=== PATIENT | female | born 1970 | race Hispanic/Latino ===

== ENCOUNTER 2019-09-15 12:11 | Inpatient (IN) | payer OTHER, SELFPAY ==
[~2019-09-15] VITALS: Ht 157.5 cm; Wt 64.9 kg
[2019-09-15] MEDS: SODIUM CHLORIDE 0.9% 1000ML 1,000 ML IV SCH (03:40)
[2019-09-15 13:20] LABS: BASOPHILS % (AUTO) 0.1 % (0.0-5.0); LYMPHOCYTES % (AUTO) 12.2 % (21.0-51.0); MEAN CORPUSCULAR HEMOGLOBIN 26.8 pg (27.0-33.0); MEAN CORPUSCULAR HGB CONC 32.6 g/dL (32.0-36.0); MEAN CORPUSCULAR VOLUME 82.3 fL (79-99); MONOCYTES % (AUTO) 4.2 % (3.0-13.0); NEUTROPHILS % (AUTO) 82.8 % (40.0-77.0); PLATELET COUNT (AUTO) 277 K/uL (130-400); RED BLOOD CELL COUNT(AUTO) 4.62 MIL/uL (4.00-5.50); RED CELL DISTRIBUTION WIDTH 12.8 % (11.0-15.5); WHITE BLOOD COUNT (AUTO) 9.2 K/uL (4.8-10.8)
[2019-09-15] MEDS ORDERED: KETOROLAC TROMETHAMINE 30MG/ML ONE (13:30)
[2019-09-15] MEDS ORDERED: SODIUM CHLORIDE 0.9% 1000ML 1,000 ML IV ONE ×2 (13:31→21:28)
[2019-09-15 13:33] LABS: CREATININE 0.8 mg/dL (0.5-1.5); POTASSIUM 3.8 mmol/L (3.5-5.1)
[2019-09-15 13:34] LABS: APPEARANCE,URINE Clear (CLEAR); BILIRUBIN,URINE Negative (NEGATIVE); COLOR,URINE Yellow (YELLOW); GLUCOSE, URINE (UA) Negative (NEGATIVE); KETONES,URINE Negative (NEGATIVE); LEUKOCYTE ESTERASE ,URINE Negative (NEGATIVE); NITRATE,URINE Negative (NEGATIVE); OCCULT BLOOD,URINE Negative (NEGATIVE); PROTEIN,URINE Negative (NEGATIVE)
[2019-09-15 13:38] LABS: ALBUMIN 3.2 g/dL (3.5-5.0); BILIRUBIN,TOTAL 0.3 mg/dL (0.2-1.0)
[2019-09-15 13:48] LABS: HCG,QUAL RESULT NEGATIVE (NEGATIVE)
[2019-09-15] MEDS ORDERED: IOHEXOL-350 75 ML VIAL IV ONE (14:03)
[2019-09-15] MEDS ORDERED: ZOSYN 3.375GM+NS 50ML 50 ML IV ONE ×2 (15:23→21:26)
[2019-09-15] MEDS ORDERED: HYDRALAZINE HCL 20 MG/ML VIAL IV PRN (18:15)
[2019-09-15] MEDS ORDERED: ONDANSETRON HCL 4 MG/2 ML VIAL IV PRN (18:15)
[2019-09-15 20:06] LABS: BASOPHILS % (AUTO) 0.1 % (0.0-5.0); HEMATOCRIT 36.2 % (36-48); LYMPHOCYTES % (AUTO) 15.5 % (21.0-51.0); MEAN CORPUSCULAR HEMOGLOBIN 27.3 pg (27.0-33.0); MEAN CORPUSCULAR HGB CONC 32.9 g/dL (32.0-36.0); MONOCYTES % (AUTO) 4.5 % (3.0-13.0); NEUTROPHILS % (AUTO) 79.4 % (40.0-77.0); PLATELET COUNT (AUTO) 238 K/uL (130-400); RED BLOOD CELL COUNT(AUTO) 4.36 MIL/uL (4.00-5.50); RED CELL DISTRIBUTION WIDTH 12.5 % (11.0-15.5); WHITE BLOOD COUNT (AUTO) 8.3 K/uL (4.8-10.8)
[2019-09-15 20:25] LABS: ALANINE AMINOTRANSFERASE 36 U/L (12-78); ALBUMIN 2.9 g/dL (3.5-5.0); ASPARTATE AMINOTRANSFERASE 21 U/L (10-37); BILIRUBIN,TOTAL 0.4 mg/dL (0.2-1.0); CARBON DIOXIDE 26 mmol/L (21-32); CHLORIDE 105 mmol/L (101-111); CREATININE 0.7 mg/dL (0.5-1.5); GLOMERULAR FILTR. RATE CALC 95 mL/min (>60); GLUCOSE,RANDOM 87 mg/dL (70-105); POTASSIUM 3.9 mmol/L (3.5-5.1); SODIUM SERUM 137 mmol/L (136-145); TOTAL PROTEIN, SERUM 7.3 g/dL (6.0-8.3); UREA NITROGEN, BLOOD 12 mg/dL (7-18)
[2019-09-15] MEDS: FAMOTIDINE/PF 20 MG/2 ML VIAL IV SCH (21:00)
[2019-09-15] MEDS ORDERED: FAMOTIDINE/PF 20 MG/2 ML VIAL IV ONE (21:27)
[2019-09-16] VITALS (27 sets, daily range): BP systolic 93–120; BP diastolic 42–76
[2019-09-16] MEDS ORDERED: HYDROMORPHONE HCL 0.5 MG/0.5 ML ML ONE (00:03)
[2019-09-16] MEDS: ZOSYN 3.375GM+NS 50ML 50 ML IV SCH ×4 (05:00→20:11)
[2019-09-16] MEDS: HYDROMORPHONE 1 MG/1 ML AMP IVP PRN ×2 (05:55→20:19)
[2019-09-16] MEDS ORDERED: LEVO88TA63 PO (06:16)
[2019-09-16] MEDS ORDERED: LEVAHFA IH (06:16)
[2019-09-16] MEDS ORDERED: FENO145T26 PO (06:16)
[2019-09-16] MEDS: FAMOTIDINE/PF 20 MG/2 ML VIAL IV SCH ×2 (09:19→20:11)
--- NOTE | 2019-09-16 12:05 | NUR ---
CHART CHECK COMPLETED. Pt IS A 49 Y.O. FEMALE ADMITTED SECONDARY TO PERFORATED APPENDICITIS. Pt HAS A PAST MEDICAL HISTORY SIGNIFICANT FOR ASTHMA,HYPOTHYROIDISM, HYPERTRIGLYCERIDEMIA, AND X3. Pt CURRENTLY NPO SECONDARY TO ADMITTING DIAGNOSIS. PLEASE REQUEST FORMAL SKILLED SPEECH/SWALLOW EVALUATION IF Pt PRESENTS WITH +S/S OF ASPIRATION SUCH COUGH RESPONSE, THROAT CLEAR, OR WET VOCAL QUALITY DURING P.O. Addendum: 09/16/19 at 1208 by DARRICK KEE, [facility] Amended: Links added.
--- NOTE | 2019-09-16 13:09 | NUR ---
[facility] CM spoke to pt discussed dc plans. Pt is independent prior to admission, lives at home alone, family lives close by. Denies any equipments/services. Feels safe to go back home, still drives, sister able to assist with transportation and needs as necessary. DC plan to home once stable. Pt is selfpay, [facility] assisting, given community Explored[employer] packet. CM to cont to follow up. Addendum: 09/16/19 at 1311 by ARIANNA BOLDEN LVN CM Amended: Links added.
[2019-09-16] MEDS: SODIUM CHLORIDE 0.9% 1000ML 1,000 ML IV SCH ×3 (14:00→22:52)
[2019-09-16] MEDS ORDERED: BUPIVACAINE/PF 0.5% 30ML VIAL ONE (14:02)
--- NOTE | 2019-09-16 14:12 | NUR ---
pt taken to surgery by bed in good condition with IVF patent; scheduled Zosyn IV also taken by OR staff (Opal)
[2019-09-16] MEDS ORDERED: LIDOCAINE PF 2% 5ML ABBOJECT ONE (14:29)
[2019-09-16] MEDS ORDERED: MIDAZOLAM HCL 1 MG/ML 2ML VIAL ONE (14:29)
[2019-09-16] MEDS ORDERED: SUCCINYLCHOLINE CHLORIDE 20 MG/ML 10 ML VIAL ONE (14:29)
[2019-09-16] MEDS ORDERED: ROCURONIUM 10MG/1ML SYR 10 MG/ML ML ONE (14:30)
[2019-09-16] MEDS ORDERED: PROPOFOL 10 MG/ML 20ML VIAL IV ONE (14:30)
[2019-09-16] MEDS ORDERED: ONDANSETRON HCL 4 MG/2 ML VIAL ONE (14:30)
[2019-09-16] MEDS ORDERED: FENTANYL CITRATE PF 50 MCG/1 ML 2ML VIAL ONE (14:31)
[2019-09-16] MEDS ORDERED: GLYCOPYRROLATE 1 MG/5 ML SYRINGE ONE (15:18)
[2019-09-16] MEDS ORDERED: KETOROLAC TROMETHAMINE 30MG/ML ONE (15:19)
[2019-09-16] MEDS ORDERED: NEOSTIGMINE 5MG/5ML SYR IV ONE (15:19)
[2019-09-16] MEDS ORDERED: MEPERIDINE-PF 25 MG/ML SYG ONE ×2 (15:31→16:04)
--- NOTE | 2019-09-16 16:47 | NUR ---
pt returned to room 327 by bed in good condition with IV site C/D/I, SCD's in place, RIC drain charged. Drsg C/D/I to lower abdomen. HOB elevated approx. 25 degrees. No current c/o or s/s of pain or resp. difficulty at this time.
[2019-09-17] VITALS (7 sets, daily range): BP systolic 104–118; BP diastolic 54–75
[2019-09-17] MEDS: HYDROMORPHONE 4MG/ML 1ML VIAL IVP PRN (01:16)
[2019-09-17] MEDS: ZOSYN 3.375GM+NS 50ML 50 ML IV SCH ×3 (04:24→20:52)
[2019-09-17] MEDS: HYDROMORPHONE 1 MG/1 ML AMP IVP PRN ×4 (05:04→23:06)
[2019-09-17 06:54] LABS: BASOPHILS % (AUTO) 0.4 % (0.0-5.0); EOSINOPHILS % (AUTO) 0.1 % (0.0-8.0); MEAN CORPUSCULAR VOLUME 84.3 fL (79-99); NEUTROPHILS % (AUTO) 87.6 % (40.0-77.0); PLATELET COUNT (AUTO) 255 K/uL (130-400); RED BLOOD CELL COUNT(AUTO) 4.15 MIL/uL (4.00-5.50); RED CELL DISTRIBUTION WIDTH 12.7 % (11.0-15.5)
[2019-09-17 07:06] LABS: CREATININE 0.8 mg/dL (0.5-1.5); POTASSIUM 3.7 mmol/L (3.5-5.1)
[2019-09-17 08:07] LABS: ERYTHROCYTE SEDIMENTATION RATE 62 MM/HR (0-20)
[2019-09-17] MEDS: FAMOTIDINE/PF 20 MG/2 ML VIAL IV SCH ×2 (09:23→20:52)
[2019-09-17] MEDS: SODIUM CHLORIDE 0.9% 1000ML 1,000 ML IV SCH ×2 (09:33→20:11)
--- NOTE | 2019-09-17 12:39 | NUR ---
pt up ambulating in the pierre with minimal assist of 1. steady gait. No s/s of resp difficulty. C/O abdominal pain, meds given as ordered.
[2019-09-18 04:27] VITALS: BP 107/55
[2019-09-18] MEDS: ZOSYN 3.375GM+NS 50ML 50 ML IV SCH ×3 (04:30→20:07)
[2019-09-18] MEDS: SODIUM CHLORIDE 0.9% 1000ML 1,000 ML IV SCH ×2 (06:23→17:08)
[2019-09-18] MEDS: HYDROMORPHONE 1 MG/1 ML AMP IVP PRN (06:24)
[2019-09-18 06:42] LABS: EOSINOPHILS % (AUTO) 0.1 % (0.0-8.0); HEMATOCRIT 32.5 % (36-48); MEAN CORPUSCULAR HEMOGLOBIN 27.4 pg (27.0-33.0); MEAN CORPUSCULAR HGB CONC 33.2 g/dL (32.0-36.0); MEAN CORPUSCULAR VOLUME 82.5 fL (79-99); MONOCYTES % (AUTO) 2.4 % (3.0-13.0); NEUTROPHILS % (AUTO) 85.6 % (40.0-77.0); PLATELET COUNT (AUTO) 257 K/uL (130-400); RED BLOOD CELL COUNT(AUTO) 3.94 MIL/uL (4.00-5.50); RED CELL DISTRIBUTION WIDTH 12.5 % (11.0-15.5); WHITE BLOOD COUNT (AUTO) 10.4 K/uL (4.8-10.8)
[2019-09-18 06:47] LABS: CREATININE 0.6 mg/dL (0.5-1.5); POTASSIUM 3.4 mmol/L (3.5-5.1)
[2019-09-18 07:30] VITALS: BP 110/70
[2019-09-18] MEDS: FAMOTIDINE/PF 20 MG/2 ML VIAL IV SCH ×2 (08:36→20:07)
[2019-09-18] MEDS ORDERED: LEVALBUTEROL TARTRATE IH SCH (09:00)
[2019-09-18] MEDS ORDERED: POTASSIUM CHLORIDE 20 MEQ ERTAB PO SCH (09:00)
[2019-09-18] MEDS ORDERED: ACETAMINOPHEN EXTRA STRENGTH 500 MG TABLET PO PRN (09:45)
[2019-09-18] MEDS: HYDROCODONE/ACETAMINOPHEN 10/325 MG TAB PO PRN ×2 (10:00→20:16)
[2019-09-18 11:00] VITALS: BP 120/60
[2019-09-18 16:00] VITALS: BP 140/108
[2019-09-18] MEDS ORDERED: HYDROMORPHONE HCL 0.5 MG/0.5 ML ML ONE (16:51)
[2019-09-18 19:44] VITALS: BP 128/67
[2019-09-18 23:56] VITALS: BP 108/66
[2019-09-19] MEDS: HYDROCODONE/ACETAMINOPHEN 10/325 MG TAB PO PRN ×3 (01:30→13:54)
[2019-09-19 04:00] VITALS: BP 102/60
[2019-09-19] MEDS: ZOSYN 3.375GM+NS 50ML 50 ML IV SCH (05:47)
[2019-09-19] MEDS ORDERED: LEVOTHYROXINE 88 MCG TABLET PO SCH (06:30)
[2019-09-19] MEDS ORDERED: HYDROMORPHONE HCL 0.5 MG/0.5 ML ML ONE (06:42)
[2019-09-19] MEDS: HYDROMORPHONE 4MG/ML 1ML VIAL IVP PRN (06:43)
[2019-09-19 07:09] LABS: HEMATOCRIT 32.2 % (36-48); MEAN CORPUSCULAR HEMOGLOBIN 26.7 pg (27.0-33.0); MEAN CORPUSCULAR HGB CONC 32.3 g/dL (32.0-36.0); MEAN CORPUSCULAR VOLUME 82.6 fL (79-99); RED BLOOD CELL COUNT(AUTO) 3.9 MIL/uL (4.00-5.50); RED CELL DISTRIBUTION WIDTH 12.7 % (11.0-15.5); WHITE BLOOD COUNT (AUTO) 8.6 K/uL (4.8-10.8)
[2019-09-19 07:23] LABS: CREATININE 0.5 mg/dL (0.5-1.5); POTASSIUM 3.6 mmol/L (3.5-5.1)
[2019-09-19 07:40] VITALS: BP 119/78
[2019-09-19] MEDS: FAMOTIDINE/PF 20 MG/2 ML VIAL IV SCH (08:21)
[2019-09-19] MEDS: SODIUM CHLORIDE 0.9% 1000ML 1,000 ML IV SCH (08:22)
[2019-09-19 10:56] VITALS: BP 114/76
[2019-09-19] MEDS ORDERED: AMOX-426 PO (13:53)
== END 2019-09-19 17:01 | disposition home or self-care (01) | DRG 340 ==
LOC: EDH 12:11 → EDHIP 12:12 → 3DH 09-16 02:50
PROVIDERS: ADMIT Internal Medicine; ATTEND Internal Medicine
PROC: 0DTJ4ZZ Resection of Appendix, Percutaneous Endoscopic Approach (ICD-10-PCS; principal; 2019-09-16 14:45)
DX: K35.33 Acute appendicitis with perforation, localized peritonitis, and gangrene, with abscess (principal); E03.9 Hypothyroidism, unspecified; E78.1 Pure hyperglyceridemia; E87.6 Hypokalemia; B96.1 Klebsiella pneumoniae [K. pneumoniae] as the cause of diseases classified elsewhere; B96.4 Proteus (mirabilis) (morganii) as the cause of diseases classified elsewhere; I10 Essential (primary) hypertension; E78.5 Hyperlipidemia, unspecified; J45.909 Unspecified asthma, uncomplicated; Z20.828 Contact with and (suspected) exposure to other viral communicable diseases; Z98.891 History of uterine scar from previous surgery
CPT/HCPCS: 36415; 74177; 80048; 80053; 81003; 81025; 84145; 85025; 85027; 85378; 85651; 86140; 87040; 87070; 87076; 87077; 87186; 87426; 88304; A4344; G0378; J0330; J1170; J1885; J2001; J2175; J2250; J2405; J2543; J2704; J2710; J3010; J3490; J7030; J7120; Q9967

== ENCOUNTER 2021-08-29 07:56 | Day surgery (SDC) | payer BC, OTHER, SELFPAY ==
[~2021-08-29] VITALS: Ht 157.5 cm; Wt 68.0 kg
[2021-08-29] VITALS (16 sets, daily range): BP systolic 98–116; BP diastolic 52–62
[~2021-08-29 07:56] MED LIST: AMOX-426 PO; FENO145T26 PO; LEVAHFA IH; LEVO88TA63 PO
[2021-08-29 08:19] LABS: HEMATOCRIT 44.4 % (36-48); LYMPHOCYTES % (AUTO) 38.6 % (21.0-51.0); MEAN CORPUSCULAR HEMOGLOBIN 27.3 pg (27.0-33.0); MEAN CORPUSCULAR HGB CONC 33.1 g/dL (32.0-36.0); MEAN CORPUSCULAR VOLUME 82.5 fL (79-99); MONOCYTES % (AUTO) 5.4 % (3.0-13.0); NEUTROPHILS % (AUTO) 55.4 % (40.0-77.0); PLATELET COUNT (AUTO) 254 K/uL (130-400); RED BLOOD CELL COUNT(AUTO) 5.38 MIL/uL (4.00-5.50); RED CELL DISTRIBUTION WIDTH 12.3 % (11.0-15.5); WHITE BLOOD COUNT (AUTO) 4.6 K/uL (4.8-10.8)
[2021-08-29 08:32] LABS: ALBUMIN 4.1 g/dL (3.5-5.0); CREATININE 0.8 mg/dL (0.5-1.5); POTASSIUM 3.9 mmol/L (3.5-5.1); TOTAL PROTEIN, SERUM 7.9 g/dL (6.0-8.3)
[2021-08-29 08:55] LABS: APPEARANCE,URINE Clear (CLEAR); BILIRUBIN,URINE Negative (NEGATIVE); COLOR,URINE Yellow (YELLOW); GLUCOSE, URINE (UA) Negative (NEGATIVE); KETONES,URINE Negative (NEGATIVE); LEUKOCYTE ESTERASE ,URINE Negative (NEGATIVE); NITRATE,URINE Negative (NEGATIVE); OCCULT BLOOD,URINE Negative (NEGATIVE); PH,URINE 5.5 (5.0-8.0); PROTEIN,URINE Negative (NEGATIVE); UROBILINOGEN,URINE 0.2 mg/dL (0.2-1.0)
[2021-08-29] MEDS ORDERED: LOSA50TA64 PO (11:26)
[2021-08-29] MEDS ORDERED: LEVO75CA5 PO (11:26)
[2021-08-29] MEDS ORDERED: LACTATED RINGERS 1000ML 1,000 ML IV ONE (11:29)
[2021-08-29] MEDS ORDERED: FAMOTIDINE 20MG VIAL IV ONE (11:33)
[2021-08-29] MEDS ORDERED: HYDROMORPHONE 1 MG INJ ONE (11:34)
[2021-08-29] MEDS ORDERED: BUPIVACAINE/PF 0.5% 30ML VIAL ONE (11:40)
[2021-08-29] MEDS ORDERED: MIDAZOLAM HCL 1 MG/ML 2ML VIAL ONE (11:51)
[2021-08-29] MEDS ORDERED: FENTANYL CITRATE PF 50 MCG/1 ML 2ML VIAL ONE (11:51)
[2021-08-29] MEDS ORDERED: ROCURONIUM 10MG/1ML SYR 10 MG/ML ML ONE (11:52)
[2021-08-29] MEDS ORDERED: GLYCOPYRROLATE 1 MG/5 ML SYRINGE ONE (11:52)
[2021-08-29] MEDS ORDERED: CEFAZOLIN SODIUM 2 GM VIAL IV ONE (12:24)
[2021-08-29] MEDS ORDERED: CEFAZOLIN SODIUM 1 GM VIAL ONE (12:25)
[2021-08-29] MEDS ORDERED: ONDANSETRON 4MG INJ ONE (12:37)
[2021-08-29] MEDS ORDERED: NEOSTIGMINE 5MG/5ML SYR IV ONE (12:39)
[2021-08-29] MEDS ORDERED: BUPIVACAINE/PF 0.5% 30ML VIAL INJ ONE (12:50)
[2021-08-29] MEDS ORDERED: MEPERIDINE-PF 25 MG/ML SYG ONE (13:21)
[2021-08-29] MEDS ORDERED: IPRATROPIUM/ALBUTEROL SULFATE 3 ML SOLUTION IH ONE (13:26)
== END 2021-08-29 15:15 | disposition home or self-care (01) ==
LOC: EDH 07:56 → DAH 07:57 → EDH 11:14 → DAH 13:23
PROVIDERS: ATTEND Surgery
DX: K43.0 Incisional hernia with obstruction, without gangrene (principal); J45.909 Unspecified asthma, uncomplicated; I10 Essential (primary) hypertension; E78.5 Hyperlipidemia, unspecified; Z90.49 Acquired absence of other specified parts of digestive tract; Z98.891 History of uterine scar from previous surgery
CPT/HCPCS: 49561; 80053; 84703; 85025; 86850; 86900; 86901; 81003; 36415; 87635; 71045; 99281; 93005; 94640; A4452; C9803; J0690 ×2; J7120; J3490 ×4; J3010; J1170; J2710; J2250; J2405; J2175; A4930; A4223; A4222; A4663; A4216; A4600

== ENCOUNTER 2024-11-22 08:46 | Inpatient (IN) | payer BC ==
[~2024-11-22] VITALS: Ht 157.5 cm; Wt 67.6 kg
[~2024-11-22 08:46] MED LIST changes: -AMOX-426 PO; -FENO145T26 PO; -LEVAHFA IH; +LEVO75CA6 PO; -LEVO88TA63 PO; +LOSA50TA64 PO
[2024-11-22 09:09] LABS: IMMATURE GRANULOCYTE ABSOLUTE 0.01 K/uL (0-1); NUCLEATED RED BLOOD CELLS 0.0 % (0.0-0.19); PLATELET COUNT (AUTO) 188 K/uL (130-400); RED BLOOD CELL COUNT(AUTO) 5.60 MIL/uL (4.00-5.50); RED CELL DISTRIBUTION WIDTH 13.9 % (11.0-15.5); WHITE BLOOD COUNT (AUTO) 4.3 K/uL (4.8-10.8)
[2024-11-22 09:11] LABS: APPEARANCE,URINE CLEAR (CLEAR); GLUCOSE, URINE (UA) NEGATIVE (NEGATIVE); LEUKOCYTE ESTERASE ,URINE NEGATIVE Leu/uL (NEGATIVE); NITRATE,URINE NEGATIVE (NEGATIVE); OCCULT BLOOD,URINE NEGATIVE (NEGATIVE)
[2024-11-22 09:22] LABS: ADD UA MICROSCOPIC YES
[2024-11-22 09:23] LABS: CREATININE 0.6 mg/dL (0.5-1.0); GLOMERULAR FILTR. RATE CALC 107.0 mL/min (>90); GLUCOSE,RANDOM 150.0 mg/dL (70-105); SODIUM SERUM 141.0 mmol/L (136-145); UREA NITROGEN, BLOOD 10.0 mg/dL (7-18)
[2024-11-22 09:24] LABS: SQUAMOUS EPITHELIAL CELL,UR RARE /HPF (0-2)
[2024-11-22 09:32] LABS: ASPARTATE AMINOTRANSFERASE 402.0 U/L (10-37); TOTAL PROTEIN, SERUM 8.1 g/dL (6.0-8.3)
--- NOTE | 2024-11-22 09:47 | ERN ---
General Chief Complaint: Abdominal Pain Stated Complaint: ABDOMINAL PAIN Time Seen by MD: 08:48 Source: patient History of Present Illness Initial Comments 54-year-old female history of hyperlipidemia and diabetes mellitus who presents to emergency room with a right upper quadrant pain that radiates to the back sign yesterday after she had a plate of lemon pepper wings and Coca-Cola. This is a 1st time she had wings that were greasy in a long time and has not had similar symptoms before in the past. Has had associated nausea and vomiting but no diarrhea. No fever no cough no shortness a breath no chest pain. Allergies: Coded Allergies: No Known Allergies (Verified Allergy, Unknown, 09/15/19) Home Meds Reported Medications Losartan Potassium (Losartan Potassium) 50 Mg Tablet, 50 MG PO HS, TAB 08/29/21 Levothyroxine Sodium (Levothyroxine) 75 Mcg Capsule, 70 MCG PO DAILY, CAP 08/29/21 Past Medical History Past Medical History: Hypertension, Hypothyroid Past Surgical History: Appendectomy, Other Surgical History Other: hernia repair Female( History) : 3 Para: 3 Aborts: 0 Gastrointestinal/Abdominal: (+) nausea, (+) vomiting, (+) abdominal pain Review of Systems: was completed, & the rest were negative. Physical Exam General Appearance: (+) no apparent distress Orientation: (+) alert, (+) oriented x 3 Ear, Nose, Throat: (+) hearing grossly normal Neck: (+) normal inspection Respiratory: (+) chest non-tender Heart: (+) regular Vascular: (+) no edema Gastrointestinal: (+) soft, (+) tender, (+) yang's sign Back: (+) normal inspection, (+) no CVA tenderness, (+) no vertebral tenderness Extremities: (+) normal range of motion Results Laboratory and Microbiology Lab and Micro Result Laboratory Tests Test 11/22/24 09:00 11/22/24 09:02 Triglycerides Level 81 mg/dL (30-200) White Blood Count 4.3 K/uL (4.8-10.8) L Red Blood Count 5.60 MIL/uL (4.00-5.50) H Hemoglobin 15.4 g/dL (12.0-16.0) Hematocrit 47.2 % (36-48) Mean Corpuscular Volume 84.3 fL (79-99) Mean Corpuscular Hemoglobin 27.5 pg (27.0-33.0) Mean Corpuscular Hemoglobin Concent 32.6 g/dL (32.0-36.0) Red Cell Distribution Width 13.9 % (11.0-15.5) Platelet Count 188 K/uL (130-400) Mean Platelet Volume 11.2 fL (7.5-10.5) H Immature Granulocyte % (Auto) 0.2 % (0-1) Neutrophils (%) (Auto) 71.9 % (40.0-77.0) Lymphocytes (%) (Auto) 24.4 % (21.0-51.0) Monocytes (%) (Auto) 3.5 % (3.0-13.0) Eosinophils (%) (Auto) 0.0 % (0.0-8.0) Basophils (%) (Auto) 0.0 % (0.0-5.0) Neutrophils # (Auto) 3.1 K/uL (1.8-7.7) Lymphocytes # (Auto) 1.0 K/uL (1.0-4.8) Monocytes # (Auto) 0.2 K/uL (0.1-1.0) Eosinophils # (Auto) 0.00 K/uL (0.00-0.70) Basophils # (Auto) 0.00 K/uL (0.00-0.20) Absolute Immature Granulocyte (auto 0.01 K/uL (0-1) Nucleated Red Blood Cells 0.0 % (0.0-0.19) Urine Color YELLOW (YELLOW) Urine Appearance CLEAR (CLEAR) Urine pH 6.5 (5.0-8.0) Urine Specific [place] 1.026 (1.001-1.031) Urine Protein 10 mg/dL (NEGATIVE) H Urine Glucose (UA) NEGATIVE mg/dL (NEGATIVE) Urine Ketones 5 mg/dL (NEGATIVE) H Urine Occult Blood NEGATIVE (NEGATIVE) Urine Nitrate NEGATIVE (NEGATIVE) Urine Bilirubin NEGATIVE mg/dL (NEGATIVE) Urine Urobilinogen 4.0 mg/dL (0.2-1.0) H Urine Leukocyte Esterase NEGATIVE Primo/uL Urine RBC 0-1 /HPF (0-1) Urine WBC 2-5 /HPF (0-1) H Urine Squamous Epithelial Cells RARE /HPF (0-2) Urine Bacteria RARE /HPF (None Seen) Sodium Level 141 mmol/L (136-145) Potassium Level 3.9 mmol/L (3.5-5.1) Chloride Level 105 mmol/L (101-111) Carbon Dioxide Level 26 mmol/L (21-32) Blood Urea Nitrogen 10 mg/dL (7-18) Creatinine 0.6 mg/dL (0.5-1.0) Glomerular Filtration Rate Calc 107 mL/min (>90) Random Glucose 150 mg/dL (70-105) H Total Calcium 9.1 mg/dL (8.5-10.1) Total Bilirubin 1.4 mg/dL (0.2-1.0) H Direct Bilirubin 0.8 mg/dL (0.0-0.3) H Aspartate Amino Transf (AST/SGOT) 402 U/L (10-37) H Alanine Aminotransferase (ALT/SGPT) 823 U/L (12-78) *H Alkaline Phosphatase 262 U/L (50-136) H Total Protein 8.1 g/dL (6.0-8.3) Albumin 3.7 g/dL (3.5-5.0) Lipase 41 U/L (16-77) MDM 54-year-old female with right upper quadrant pain with signs and symptoms consistent with possible cholecystitis. We will get basic labs and imaging to rule out this diagnosis. Disposition pending results of labs and imaging ED Course Orders Procedure Category Date Status Time Lipase LAB 11/22/24 Complete 08:49 Basic Metabolic Panel LAB 11/22/24 Complete 08:49 Cbc With Differential LAB 11/22/24 Complete 08:49 Hepatic Function Panel LAB 11/22/24 Complete 08:49 Urinalysis Profile LAB 11/22/24 Complete 08:50 Us Abdominal Ruq\Ltd US 11/22/24 Resulted 09:39 Triglycerides LAB 11/22/24 Complete 09:39 Ketorolac PHA 11/22/24 Complete Tromethamine 15mg/Ml 10:00 0.9%Nacl 1000ml (Ns PHA 11/22/24 In Process 1000ml) 10:00 Current Medications Medications (Trade) Dose Ordered Sig/Arvin Route PRN Reason Start Time Stop Time Status Last Admin Dose Admin Ketorolac Tromethamine (toRADol) 15 mg ONCE ONCE IV 11/22/24 10:00 11/22/24 10:01 DC 11/22/24 09:50 Sodium Chloride 1,000 ml @ 125 mls/hr Q8H ONCE IV 11/22/24 10:00 11/22/24 17:59 11/22/24 09:51 Vital Signs Date Time Temp Pulse Resp B/P (MAP) Pulse Ox O2 Delivery O2 Flow Rate FiO2 11/22/24 09:42 98.8 51 18 159/57 100 Room Air* 0 21 11/22/24 08:54 96.6 66 16 167/70 98 Room Air* 0 21 11/22/24 08:50 96.6 66 16 167/70 98 Room Air 0 Patient with symptomatic cholelithiasis. Spoke to Dr. Marte, general surgery who states to admit the patient to Medicine for evaluation by him. Patient also with elevated liver enzymes. We will admit to medicine for surgical evaluation and pain control. DX & DISP Disposition: Inpatient Departure Impression: Primary Impression: Symptomatic cholelithiasis Condition: Stable Referrals: SELF,REFERRAL (PCP) ELIZA DAWKINS MD Nov 22, 2024 09:47
[2024-11-22] MEDS: 0.9%NACL 1000ML 1,000 ML IV ONE (09:51)
--- NOTE | 2024-11-22 10:31 | HMCIMG ---
US ABDOMINAL RUQ\E\LTD HISTORY: r/o shyam abdominal pain COMPARISON: None FINDINGS: There is there is grade 1 hepatic steatosis of the liver.. The liver length is 11.25 cm. There are no focal liver masses. The liver is not enlarged.The gallbladder has a large gallstone in the lumen near the neck measuring 1.9 x 2 cm. The gallbladder wall thickness is 0.2 cm. The gallbladder is distended. The common bile duct measures 0.3 cm. Common duct is normal. Right kidney is normal with no evidence of mass, hydronephrosis or stone.The right kidney measures 10.8 x 4.3 x 5.0 cm. The pancreas is normal size normal echotexture. IMPRESSION: 1. Cholelithiasis 2. Grade 1 hepatic steatosis of the liver.
[2024-11-22] MEDS ORDERED: DEXTROSE 50%-WATER 50 ML DISP.SYRIN IV PRN (12:00)
[2024-11-22] MEDS ORDERED: guaiFENesin-DM 200/20MG 10ML PO PRN (12:00)
[2024-11-22] MEDS ORDERED: MAG/ALUM/SIMETH 30 ML UDCUP PO PRN (12:00)
[2024-11-22] MEDS ORDERED: PoTASSium chloRIDE 20MEQ ER 20 MEQ ERTAB PO PRN (12:00)
[2024-11-22] MEDS ORDERED: MAGNESIUM 2GM PREMIX 50ML 50 ML IV PRN (12:00)
[2024-11-22] MEDS ORDERED: PoTASSium chl 10% ELIXIR 20MEQ 20 MEQ/15 ML UDCUP PO PRN (12:00)
[2024-11-22] MEDS ORDERED: NITROGLYCERIN 0.4 MG SL TAB SL PRN (12:00)
[2024-11-22] MEDS ORDERED: LACTULOSE 20 GM/30 ML UDCUP PO PRN (12:00)
[2024-11-22] MEDS ORDERED: GLUCAGON 1MG KIT 1 MG ML IM PRN (12:00)
[2024-11-22] MEDS ORDERED: FAMOTIDINE 20MG VIAL IV PRN (12:00)
[2024-11-22] MEDS: 0.9%NACL 1000ML 1,000 ML IV SCH (12:49)
--- NOTE | 2024-11-22 13:57 | HP ---
[facility]ISTORY [facility] PHYSICAL Date of Service: Nov 22, 2024 Time of Service: 13:48 Date of Service: Nov 22, 2024 Time of Service: 13:40 PCP:Dr Zeynep Carey in [facility] Admitting: Dr Avendaño, Allergies: No Allergy Information Available, No Known Drug Allergies HISTORY OF PRESENT ILLNESS: [54 years old female with a past medical history of hyperlipidemia, , appendectomy,, thyroid disease, who came to emergency department with a complaint of abdominal pain RUQ on right side that radiates to her back. To pain started yesterday after she had a plate of lemon pepper wings and Coca- Cola, was going on night. This is a 1st time she had wings that were greasy in a long time and has not had similar symptoms before in the past. The pain was unbearable so patient decided to come to ER for evaluation/recommendations. Most recent vital signs temperature 98 pulse 55 respiration patient 148/60 patient is on satting 98% FVC 4.3 hemoglobin 15.4 hematocrit 40.2 platelets 188 negative for leukocytosis or nitrates. Sodium 141 potassium three point CO2 26 BUN 10 creatinine 0.6 GFR 107 lactic one point random glucose 150 0.8 AST for 0 two ALT 823 0.7 triglyceride 81 lipase 40. Ultrasound cholelithiasis grade 1 steatosis chest x-ray pending MRCP pending. We will consult GI for evaluation enzymes. Consulted cholecystitis. Patient will be admitted under hospitalist care for further evaluation/recommendations] REVIEW OF SYSTEMS CONSTITUTIONAL: Denies fevers, chills, or night sweats. No unintentional weight loss reported. NEUROLOGICAL: Denies headache, amaurosis fugax, motor weakness, sensory deficit, vertigo/spinning sensation, gait abnormalities, or tremors. ENT: No hearing loss, otalgia, otorrhea, rhinitis, rhinorrhea, hoarseness, or sore throat. CARDIOVASCULAR: Denies any exertional angina, dyspnea on exertion, orthopnea, paroxysmal nocturnal dyspnea, palpitations, life-threatening arrhythmias, claudication. PULMONARY: Denies any shortness of breath, cough, phlegm/sputum, hemoptysis, pleuritic chest pain. SLEEP: Denies morning headaches, daytime somnolence or napping. Denies difficulty falling asleep, staying asleep, waking from sleep. Denies knowledge of snoring. GASTROINTESTINAL: Denies any type of dysphagia to either liquids or solids. Denies , pyrosis, early satiety, diarrhea, constipation, or changes in stool consistency or caliber. Denies coffee-ground emesis, hematemesis, hematochezia, or melanotic stools. Complains the abdominal pain nausea and vomiting GENITOURINARY: Denies frequency, urgency, nocturia, hematuria or incontinence (Storage/Irritative symptoms.) Low urinary stream, straining to void, urinary intermittency or hesitancy, splitting of the voiding stream, terminal dribbling. ENDOCRINOLOGIC: Denies polyuria, polydipsia, polyphagia or heat/cold intolerances. HEMATOLOGIC: Denies thrombophilia/previous clots, or coagulopathy/bleeding disorders. ONCOLOGIC: Denies personal history of malignancy. DERMATOLOGIC: Denies rashes or pruritus. PSYCHIATRIC: Denies any suicidal or homicidal ideation. Denies hallucinations. PAST MEDICAL HISTORY: [ Hypertension, hypothyroidism ] PAST SURGICAL HISTORY: [ , appendectomy, hernia repair, ] PAST SOCIAL HISTORY: [Patient denies any smoking. Patient denies any drug illicit patient denies alcohol consumption ] FAMILY HISTORY: [Patient is independent. Lives at home with kids ] Coded Allergies: No Known Allergies (Verified Allergy, Unknown, 09/15/19) PHYSICAL EXAM GENERAL APPEARANCE: The patient is awake, alert, and oriented, in no acute cardiopulmonary distress. NEUROLOGICAL: Cranial nerves II-XII grossly intact. Motor is 5/5 in bilateral upper and lower extremities proximal to distal. No sensory deficits. HEENT: Face is symmetric. Pupils are equal and reactive. Extraocular movements are intact. NECK: Supple. No JVD. No thyromegaly. No submental, submandibular, pre- /postauricular, occipital or supraclavicular lymphadenopathy. CHEST: Normal chest expansion. No Telemetry. LUNGS: Absence of any rales, rhonchi or any wheezing. CARDIOVASCULAR: Regular. S1 and S2 normal. No appreciable rubs, murmurs or gallops. ABDOMEN: Soft, nontender, and nondistended. There is no rebound, , or rigidity.voluntary guarding : Deferred. No [place]. EXTREMITIES: Non-edematous and not cyanotic. No clubbing. Good capillary refill. SKIN: No skin breakdown. Vital Sign (Last 24 Hours) 11/22/24 13:06 Temp 98.8 Pulse 55 Resp 18 B/P (MAP) 148/60 Pulse Ox 98 O2 Delivery Room Air* O2 Flow Rate 0 FiO2 21 LABS: Laboratory: Test 11/22/24 12:10 11/22/24 09:02 11/22/24 09:00 Range/Units Lactic Acid Level 1.0 0.8-2.5 mmol/L White Blood Count 4.3 L 4.8-10.8 K/uL Red Blood Count 5.60 H 4.00-5.50 MIL/uL Hemoglobin 15.4 12.0-16.0 g/dL Hematocrit 47.2 36-48 % Mean Corpuscular Volume 84.3 79-99 fL Mean Corpuscular Hemoglobin 27.5 27.0-33.0 pg Mean Corpuscular Hemoglobin Concent 32.6 32.0-36.0 g/dL Red Cell Distribution Width 13.9 11.0-15.5 % Platelet Count 188 130-400 K/uL Mean Platelet Volume 11.2 H 7.5-10.5 fL Immature Granulocyte % (Auto) 0.2 0-1 % Neutrophils (%) (Auto) 71.9 40.0-77.0 % Lymphocytes (%) (Auto) 24.4 21.0-51.0 % Monocytes (%) (Auto) 3.5 3.0-13.0 % Eosinophils (%) (Auto) 0.0 0.0-8.0 % Basophils (%) (Auto) 0.0 0.0-5.0 % Neutrophils # (Auto) 3.1 1.8-7.7 K/uL Lymphocytes # (Auto) 1.0 1.0-4.8 K/uL Monocytes # (Auto) 0.2 0.1-1.0 K/uL Eosinophils # (Auto) 0.00 0.00-0.70 K/uL Basophils # (Auto) 0.00 0.00-0.20 K/uL Absolute Immature Granulocyte (auto 0.01 0-1 K/uL Nucleated Red Blood Cells 0.0 0.0-0.19 % Urine Color YELLOW YELLOW Urine Appearance CLEAR CLEAR Urine pH 6.5 5.0-8.0 Urine Specific [place] 1.026 1.001-1.031 Urine Protein 10 H NEGATIVE mg/dL Urine Glucose (UA) NEGATIVE NEGATIVE mg/dL Urine Ketones 5 H NEGATIVE mg/dL Urine Occult Blood NEGATIVE NEGATIVE Urine Nitrate NEGATIVE NEGATIVE Urine Bilirubin NEGATIVE NEGATIVE mg/dL Urine Urobilinogen 4.0 H 0.2-1.0 mg/dL Urine Leukocyte Esterase NEGATIVE NEGATIVE Primo/uL Urine RBC 0-1 0-1 /HPF Urine WBC 2-5 H 0-1 /HPF Urine Squamous Epithelial Cells RARE 0-2 /HPF Urine Bacteria RARE None Seen /HPF Sodium Level 141 136-145 mmol/L Potassium Level 3.9 3.5-5.1 mmol/L Chloride Level 105 101-111 mmol/L Carbon Dioxide Level 26 21-32 mmol/L Blood Urea Nitrogen 10 7-18 mg/dL Creatinine 0.6 0.5-1.0 mg/dL Glomerular Filtration Rate Calc 107 >90 mL/min Random Glucose 150 H 70-105 mg/dL Total Calcium 9.1 8.5-10.1 mg/dL Total Bilirubin 1.4 H 0.2-1.0 mg/dL Direct Bilirubin 0.8 H 0.0-0.3 mg/dL Aspartate Amino Transf (AST/SGOT) 402 H 10-37 U/L Alanine Aminotransferase (ALT/SGPT) 823 *H 12-78 U/L Alkaline Phosphatase 262 H 50-136 U/L Total Protein 8.1 6.0-8.3 g/dL Albumin 3.7 3.5-5.0 g/dL Lipase 41 16-77 U/L Triglycerides Level 81 30-200 mg/dL Current Medications Medications (Trade) Dose Ordered Sig/Arvin Route PRN Reason Start Time Stop Time Status Last Admin Dose Admin Acetaminophen (TYLenol 325MG TAB) 650 mg Q4H PRN PO MILD PAIN (1-3) 11/22/24 12:00 12/22/24 11:59 Acetaminophen (TYLenol 325MG TAB) 650 mg Q6H PRN PO MILD PAIN (1-3) 11/22/24 12:00 11/22/24 12:03 DC Acetaminophen (TYLenol 325MG TAB) 650 mg Q6H PRN PO TEMPERATURE GREATER THAN 101.5 11/22/24 12:00 12/22/24 11:59 Al Hydroxide/Mg Hydroxide (MAALox PLUS 30ML) 30 ml Q6H PRN PO INDIGESTION 11/22/24 12:00 12/22/24 11:59 Ceftriaxone Sodium 2 gm/ Sodium Chloride 100 ml @ 200 mls/hr Q24H IV 11/22/24 12:00 11/22/24 12:04 DC Ceftriaxone Sodium (Rocephin 2gm Inj) 2 gm Q24H IVPB 11/22/24 13:30 12/02/24 13:29 11/22/24 13:32 2 GM Dextrose (D50w) 50 ml AD PRN IV HYPOGLYCEMIA PROTOCOL 11/22/24 12:00 12/22/24 11:59 Diphenhydramine HCl (BENAdryl INJ) 25 mg Q6H PRN IV SEVERE ITCHING/RASH 11/22/24 12:00 12/22/24 11:59 Famotidine (Pepcid 20mg Vial) 20 mg BID IV 11/22/24 21:00 12/22/24 20:59 Famotidine (Pepcid 20mg Vial) 20 mg BID PRN IV NAUSEA/VOMITING 11/22/24 12:00 11/22/24 12:03 DC Glucagon (Glucagon 1mg Kit) 1 mg AD PRN IM HYPOGLYCEMIA PROTOCOL 11/22/24 12:00 12/22/24 11:59 Guaifenesin/ Dextromethorphan (RobiTUSSin DM 200/20MG 10ML) 10 ml Q4H PRN PO COUGH 11/22/24 12:00 12/22/24 11:59 Heparin Sodium (Porcine) (HEParin 5,000 UNIT VIAL) 5,000 unit BID SQ 11/22/24 21:00 12/22/24 20:59 Hydralazine HCl (APRESOLine 20MG INJ) 10 mg Q6H PRN IV For:SBP above 160;DBP above 90 11/22/24 12:00 12/22/24 11:59 Ibuprofen (moTRIN) 600 mg Q8H PRN PO MODERATE PAIN (4-6) 11/22/24 12:00 11/22/24 12:03 DC Insulin Human Regular (humuLIN R 100 UNIT/ML 3ML) INSULIN SLIDING SCAL... ACHS SQ 11/22/24 16:30 12/22/24 16:29 Ketorolac Tromethamine (toRADol) 15 mg Q8H PRN IV MODERATE PAIN (4-6) 11/22/24 12:00 11/27/24 11:59 Lactulose (Constulose 20gm/ 30ml Udcup) 20 gm BID PRN PO CONSTIPATION 11/22/24 12:00 12/22/24 11:59 Magnesium Sulfate 50 ml @ 0 mls/hr PROTOCOL PRN IV other 11/22/24 12:00 12/22/24 11:59 Morphine Sulfate (morPHINE 4MG SYG) 1 mg Q4H PRN IVP SEVERE PAIN (7-10) 11/22/24 12:00 11/29/24 11:59 Nitroglycerin (Nitrostat) 0.4 mg PROTOCOL PRN SL CHEST PAIN 11/22/24 12:00 12/22/24 11:59 Ondansetron HCl (zoFRAN 4MG INJ) 4 mg Q6H PRN IV NAUSEA/VOMITING 11/22/24 12:00 12/22/24 11:59 Oxycodone/ Acetaminophen (perCOCET) 1 tab Q6H PRN PO SEVERE PAIN (7-10) 11/22/24 12:00 11/22/24 12:03 DC Potassium Chloride 100 ml @ 100 mls/hr AD PRN IV POTASSIUM PROTOCOL 11/22/24 12:00 12/22/24 11:59 Potassium Chloride (K-Dur/Klor-Con 20meq) 20 meq AD PRN PO POTASSIUM PROTOCOL 11/22/24 12:00 12/22/24 11:59 Potassium Chloride (KCl 10% Elixir 20meq/15ml) 20 meq AD PRN PO POTASSIUM PROTOCOL 11/22/24 12:00 12/22/24 11:59 Sodium Chloride 1,000 ml @ 100 mls/hr Q10H IV 11/22/24 12:00 12/22/24 11:59 11/22/24 12:49 100 MLS/HR Zolpidem Tartrate (AmbIEN) 5 mg HS PRN PO INSOMNIA 11/22/24 12:00 12/22/24 11:59 DIAGNOSTICS / RADIOLOGY: [ ] ASSESSMENT: [ Cholelithiasis POA Possible cholecystitis POA grade 1 steatosis per ultrasound POA Elevated liver enzymes POA Uncontrolled hypertension POA Hypothyroidism POA uncontrolled diabetes mellitus type 2 with hyperglycemia POA History of History of Appendectomy History of] PLAN: [ Patient will be admitted under hospitalist care to medical-surgical floor Surgeon consulted for cholecystitis GI consulted for cholelithiasis elevated liver enzymes Patient placed on Zosyn Homicidal Negative Chest x-ray pending Pending Ultrasound abdomen showed cholelithiasis grade 1 hepatic steatosis of liver Hyper hypoglycemia protocol Hypomagnesemia Protocol Hypokalemia protocol Blood culture pending Culture pending PRN medications PT for further evaluation Case management for disposition] ADVANCED CARE PLANNING 1. Which of the following were discussed? Hospice Care - Yes / No Therapeutic options - Yes / No Advance Directives - Yes / No Other discussions - 2. Discussed with who? patient 3. Voluntary nature of this service was explained to the patient? Yes / No 4. Amount of time spent - __more than 35 min 5. Reviewed by Physician? (if this service was performed by NPP) Yes / No ATTESTATION BY PHYSICIAN I have seen and examined the patient. I reviewed the documentation, medical decision making, and treatment plan as noted by the mid-level provider above. I agree with the findings and plan of care. RAJAT AVENDAÑO MD, KATAR[employer]YNA B [employer] Nov 22, 2024 13:57
--- NOTE | 2024-11-22 14:45 | NUR ---
Pt. transported to MRI via w/c. No acute distress noted.
--- NOTE | 2024-11-22 15:07 | NUR ---
Pt. in MRI Addendum: 11/22/24 at 1507 by PABLITO WOLF RN RN Amended: Links added.
--- NOTE | 2024-11-22 15:18 | HMCIMG ---
EXAM: CR Chest, 1 View. CLINICAL HISTORY: congstion COMPARISON: None provided. FINDINGS: LUNGS: The lungs show no infiltrate or other acute finding. PLEURAL SPACES: No pleural effusion or pneumothorax. MEDIASTINUM: Cardiac size and mediastinal contours within normal limits. BONES: No acute osseous abnormality. IMPRESSION: No acute cardiopulmonary pathology is evident. /[place]
[2024-11-22] MEDS ORDERED: ATOR40TA69 PO (15:23)
[2024-11-22 16:00] VITALS: BP 125/78; PULSE 52; RESP 18; TEMP 97.7
[2024-11-22 16:39] VITALS: O2SAT 100
[2024-11-22 20:15] VITALS: BP 164/76; PULSE 84; RESP 20; TEMP 97.8; O2SAT 99
--- NOTE | 2024-11-22 20:20 | NUR ---
HIDA: PT BACK IN ROOM, PT TAKEN DOWN FOR HIDA SCAN AT 1915. TECH REPORTED TO NURSE, HIDA SCAN NEEDS TO BE DONE AGAIN IN 2 DAYS SINCE PT RECEIVED MORPHINE IV AT 1728 AND IT IS A CONTRAINDICATION FOR EXAM.
--- NOTE | 2024-11-22 20:33 | NUR ---
RAD NUCLEAR MEDICINE HIDA SCAN WAS DONE ON PATIENT, BUT PATIENT INFORMED ME THEY RECEIVED MORPHINE WHICH IS A CONTAINDICATION FOR THE HIDA SCAN STUDY. MORNING SHIFT ER NURSE HAD BEEN MADE AWARE ON THE SPECIAL PREP FOR PATIENT, HE OR SHE FAILED TO INFORM NURSE PABLITO ABOUT THE CONTRAINDICATIONS. WHILE MATE FISHING VESSEL NURSE HAD NOT LOOKED OVER PATIENT SINCE IT WAS THE START OF HER SHIFT. MISCOMMUNICATION. EXAM WILL HAVE TO BE REATTEMPTED IN TWO DAYS FOR MORE ACCURATE HIDA STUDY.
[2024-11-22] MEDS: FAMOTIDINE 20MG VIAL IV SCH (20:37)
[2024-11-23] VITALS (9 sets, daily range): BP systolic 119–139; BP diastolic 58–74; PULSE 77–84; RESP 16–21; TEMP 97.3–99.6; O2SAT 98–99
--- NOTE | 2024-11-23 03:59 | CONS ---
GASTROENTEROLOGY CONSULTATION REFERRING PHYSICIAN: Dr. Alford. REASON FOR CONSULTATION: Right upper quadrant abdominal pain, nausea, vomiting with elevated liver chemistries, and abnormal abdominal imaging showing fatty liver, cholelithiasis, and distended gallbladder. HISTORY OF PRESENT ILLNESS: The patient is a 54-year-old female with a history of diabetes mellitus, hyperlipidemia, and hypothyroidism, who has undergone umbilical hernia repair and laparoscopic cholecystectomy and who was admitted with right upper quadrant abdominal pain, nausea, and vomiting, who also has elevated liver chemistries and abnormal abdominal imaging, which showed fatty liver and cholelithiasis with distended gallbladder for which evaluation and management was sought. According to the patient, she has been having right upper quadrant abdominal pain on and off over the last 24 hours. The pain has been constant radiating to the right back and has been unchanged with her episodes of nausea and vomiting but gets worse with food intake. The pain has been sharp. She is noted to have elevated liver chemistries on labs. Fatty liver is noted and cholelithiasis with distended gallbladder on ultrasound of the abdomen. MRCP done is pending. ALLERGIES: No known drug allergies. PAST MEDICAL AND PAST SURGICAL HISTORY: ____, history of hypertension and hypothyroidism. She has no history of CAD, IA, CVA, seizure disorder, PUD or asthma. She has undergone laparoscopic appendectomy and also laparoscopic umbilical hernia repair. MEDICATIONS: Famotidine, insulin, ceftriaxone, hydralazine, morphine sulfate, oxycodone/acetaminophen, ketorolac, ibuprofen, guaifenesin, Milk of Magnesia, Zolpidem tartrate, ondansetron, diphenhydramine, potassium chloride supplement. SOCIAL HISTORY: No history of alcohol use, tobacco use, or illicit drug use. FAMILY HISTORY: Possible DM, hypertension, CVA, CAD, IA, colon cancer, stomach cancer, IBD, or liver disease. REVIEW OF SYSTEMS: CONSTITUTIONAL: The patient reports right upper quadrant abdominal pain has improved since hospitalization. Nausea has improved also. She has no vomiting now. She denies fever, chills. OPHTHALMOLOGY: No recent vision changes, eye pain, periorbital swelling, redness, or drainage. DERMATOLOGY: Denies any rash, bruises, or excessive dry skin. ENT: No ear pain, tinnitus, hearing loss, nasal congestion, rhinorrhea, sore throat, or voice changes. RESPIRATORY: No wheezes, rhinorrhea, epistaxis, chest congestion, or cough. CARDIOVASCULAR: No chest pain, palpitations, or leg swelling. GENITOURINARY: No dysuria or hematuria. No urinary urgency or frequency. GASTROINTESTINAL: The patient has been having right upper quadrant abdominal pain, which has improved since hospitalization. Nausea is also improved. There is no vomiting now. She denies gross GI bleed, melena, hematochezia, constipation, or diarrhea. MUSCULOSKELETAL: No joint pain, joint swelling, or backache. NEUROLOGY: No tingling, numbness, vision changes, or hearing loss. PSYCHIATRY: No history of depression, anxiety, or suicidal ideations. PHYSICAL EXAMINATION: GENERAL: The patient is a 54-year-old female who appears her stated age seen resting in bed in no acute respiratory distress. VITAL SIGNS: Blood pressure 125/78, heart rate 52, respirations 18, temperature 97.7 degrees Fahrenheit. SKIN: Warm and dry. No active dermatosis. HEENT: The patient's head was normocephalic, atraumatic. Pupils reactive. Sclerae anicteric. Oral mucosa was moist. No obvious lesion or blood noted. Nasal mucosa showed no epistaxis, septal deviation, or perforation. NECK: No masses. No jugular venous distention. No lymphadenopathy or thyromegaly. LUNGS: Clear to auscultation bilaterally. HEART: S1, S2. No obvious murmurs, rubs, or gallops auscultated. ABDOMEN: Symmetric, soft with active bowel sounds. No hepatomegaly or masses. Tenderness noted in the epigastric and right upper abdominal quadrant. No rebound or guarding noted. EXTREMITIES: No cyanosis, clubbing, or edema. RECTAL: Deferred. LABORATORY DATA: WBC 4.3, hemoglobin 15.4, hematocrit 47.2, MCV 84.3, platelet count 188. Serum chemistry revealed sodium 141, potassium 3.9, chloride 105, CO2 of 26, BUN of 10, creatinine 0.6, GFR 107, random glucose 150, lactic acid of 1, total calcium 9.1, total bilirubin of 1.4, direct bilirubin 0.8, AST 402, ALT 823, alkaline phosphatase 262, total protein 8.1, albumin 3.7, triglycerides 81, lipase 41. Urinalysis done showed clear yellow urine, pH 6.5, specific gravity 1.026, total protein of 10, glucose negative, ketone 5, occult blood, nitrate, and bilirubin were negative, urobilinogen 4, leukocyte esterase negative, RBCs 0-1, WBCs 2-5, squamous epithelial cells rare and urine bacteria are rare. IMPRESSION: * Right upper quadrant abdominal pain with nausea, vomiting, and elevated liver chemistries as above, with findings of cholelithiasis/distended gallbladder suggestive of symptomatic gallstone disease. * Fatty liver with elevated liver chemistries suggests possible steatohepatitis. PLAN: * We will recommend ERCP if MRCP indicates any evidence of choledocholithiasis or abnormality that would necessitate the need for ERCP. * May give clear liquid diet for now. * Pain medication and antiemetics as needed. * Surgical consultation. * Recommend liver chemistries be monitored. * Monitor and supplement electrolytes, keep potassium at lest 4 and magnesium atleast 2.0. * Recommend also a FibroScan of the liver. This may be done as an outpatient after she fully recovers from her illness. Dr. Alford, thank you for allowing me to participate in the care of this patient. TID: [id number] RECEIPT: [id number]
[2024-11-23 10:33] LABS: NUCLEATED RED BLOOD CELLS 0.0 % (0.0-0.19); PLATELET COUNT (AUTO) 143.0 K/uL (130-400); RED BLOOD CELL COUNT(AUTO) 5.06 MIL/uL (4.00-5.50); RED CELL DISTRIBUTION WIDTH 14.1 % (11.0-15.5); WHITE BLOOD COUNT (AUTO) 9.6 K/uL (4.8-10.8)
[2024-11-23 10:49] LABS: ASPARTATE AMINOTRANSFERASE 233.0 U/L (10-37); TOTAL PROTEIN, SERUM 6.2 g/dL (6.0-8.3)
[2024-11-23 10:50] LABS: ASPARTATE AMINOTRANSFERASE 226.0 U/L (10-37); CREATININE 0.5 mg/dL (0.5-1.0); GLOMERULAR FILTR. RATE CALC 111.0 mL/min (>90); GLUCOSE,RANDOM 85.0 mg/dL (70-105); SODIUM SERUM 140.0 mmol/L (136-145); TOTAL PROTEIN, SERUM 6.4 g/dL (6.0-8.3); UREA NITROGEN, BLOOD 6.0 mg/dL (7-18)
--- NOTE | 2024-11-23 11:29 | HMCIMG ---
Preface MR Cholangiopancreatography TECHNIQUE: Multiplanar images were obtained without intravenous contrast, utilizing a series of customized pulse sequences. Findings: Cholelithiasis is noted. No fluid about gallbladder. No intra or extrahepatic biliary ductal dilatation. Visualized liver, adrenal glands, kidneys, spleen, and pancreas are unremarkable. Visualized bowel is unremarkable. IMPRESSION: Cholelithiasis. No inflammatory changes about gallbladder. /[place]
--- NOTE | 2024-11-23 11:45 | PN ---
[facility] PROGRESS NOTE Date of Service: Nov 23, 2024 Time of Service: 11:41 Attending doctor Prashanth SUBJECTIVE: [ 11/22 [54 years old female with a past medical history of hyperlipidemia, C- section, appendectomy,, thyroid disease, who came to emergency department with a complaint of abdominal pain RUQ on right side that radiates to her back. To pain started yesterday after she had a plate of lemon pepper wings and [employer]- [employer], was going on night. This is a 1st time she had wings that were greasy in a long time and has not had similar symptoms before in the past. The pain was unbearable so patient decided to come to ER for evaluation/recommendations. Most recent vital signs temperature 98 pulse 55 respiration patient 148/60 patient is on satting 98% FVC 4.3 hemoglobin 15.4 hematocrit 40.2 platelets 188 negative for leukocytosis or nitrates. Sodium 141 potassium three point CO2 26 BUN 10 creatinine 0.6 GFR 107 lactic one point random glucose 150 0.8 AST for 0 two ALT 823 0.7 triglyceride 81 lipase 40. Ultrasound cholelithiasis grade 1 steatosis chest x-ray pending MRCP pending. We will consult GI for evaluation enzymes. Consulted cholecystitis. Patient will be admitted under hospitalist care for further evaluation/recommendations 11/23 patient was seen by nurse practitioner and physician during rounding in room number 122. Patient underwent MRCP and showed cholelithiasis. HIDA scan was performed pending final results. As per GI if MRCP abnormal patient will need ERCP. If HIDA scan positive for acute cholecystitis we will probably proceed with cholecystectomy. Pending further recommendations/plan by GI and surgeon. All labs and radiology was reviewed by [facility]. Patient will receive 40 mEq of potassium for potassium of 3.6. AST ALT has improved. We will continue to monitor patient in the meantime. Continue Rocephin and Flagyl. A.m. labs] REVIEW OF SYSTEMS CONSTITUTIONAL: Denies fevers, chills, or night sweats. No unintentional weight loss reported. NEUROLOGICAL: Denies headache, amaurosis fugax, motor weakness, sensory deficit, vertigo/spinning sensation, gait abnormalities, or tremors. ENT: No hearing loss, otalgia, otorrhea, rhinitis, rhinorrhea, hoarseness, or sore throat. CARDIOVASCULAR: Denies any exertional angina, dyspnea on exertion, orthopnea, paroxysmal nocturnal dyspnea, palpitations, life-threatening arrhythmias, claudication. PULMONARY: Denies any shortness of breath, cough, phlegm/sputum, hemoptysis, pleuritic chest pain. SLEEP: Denies morning headaches, daytime somnolence or napping. Denies difficulty falling asleep, staying asleep, waking from sleep. Denies knowledge of snoring. GASTROINTESTINAL: Denies any type of dysphagia to either liquids or solids. Denies , pyrosis, early satiety, diarrhea, constipation, or changes in stool consistency or caliber. Denies coffee-ground emesis, hematemesis, hematochezia, or melanotic stools. Complains the abdominal pain GENITOURINARY: Denies frequency, urgency, nocturia, hematuria or incontinence (Storage/Irritative symptoms.) Low urinary stream, straining to void, urinary intermittency or hesitancy, splitting of the voiding stream, terminal dribbling. ENDOCRINOLOGIC: Denies polyuria, polydipsia, polyphagia or heat/cold intolerances. HEMATOLOGIC: Denies thrombophilia/previous clots, or coagulopathy/bleeding disorders. ONCOLOGIC: Denies personal history of malignancy. DERMATOLOGIC: Denies rashes or pruritus. PSYCHIATRIC: Denies any suicidal or homicidal ideation. Denies hallucinations. PHYSICAL EXAM GENERAL APPEARANCE: The patient is awake, alert, and oriented, in no acute cardiopulmonary distress. NEUROLOGICAL: Cranial nerves II-XII grossly intact. Motor is 5/5 in bilateral upper and lower extremities proximal to distal. No sensory deficits. HEENT: Face is symmetric. Pupils are equal and reactive. Extraocular movements are intact. NECK: Supple. No JVD. No thyromegaly. No submental, submandibular, pre- /postauricular, occipital or supraclavicular lymphadenopathy. CHEST: Normal chest expansion. No Telemetry. LUNGS: Absence of any rales, rhonchi or any wheezing. CARDIOVASCULAR: Regular. S1 and S2 normal. No appreciable rubs, murmurs or gallops. ABDOMEN: Soft, nontender, and nondistended. There is no rebound, , or rigidi ty.voluntary guarding : Deferred. No [place]. EXTREMITIES: Non-edematous and not cyanotic. No clubbing. Good capillary refill. SKIN: No skin breakdown. Vital Signs (last 8hr) Date Time Temp Pulse Resp B/P (MAP) Pulse Ox O2 Delivery O2 Flow Rate FiO2 11/23/24 08:00 98.2 79 16 119/66 97 Room Air 11/23/24 04:00 97.5 82 21 129/68 97 Room Air 0.0 LABS: Laboratory: Test 11/23/24 10:02 11/23/24 05:20 11/22/24 12:10 11/22/24 09:02 Range/Units White Blood Count 9.6 4.8-10.8 K/uL Red Blood Count 5.06 4.00-5.50 MIL/uL Hemoglobin 13.9 12.0-16.0 g/dL Hematocrit 41.8 36-48 % Mean Corpuscular Volume 82.6 79-99 fL Mean Corpuscular Hemoglobin 27.5 27.0-33.0 pg Mean Corpuscular Hemoglobin Concent 33.3 32.0-36.0 g/dL Red Cell Distribution Width 14.1 11.0-15.5 % Platelet Count 143 130-400 K/uL Mean Platelet Volume 11.2 H 7.5-10.5 fL Nucleated Red Blood Cells 0.0 0.0-0.19 % Sodium Level 140 136-145 mmol/L Potassium Level 3.6 3.5-5.1 mmol/L Chloride Level 108 101-111 mmol/L Carbon Dioxide Level 22 21-32 mmol/L Blood Urea Nitrogen 6 L 7-18 mg/dL Creatinine 0.5 0.5-1.0 mg/dL Glomerular Filtration Rate Calc 111 >90 mL/min Random Glucose 85 70-105 mg/dL Hemoglobin A1c 6.0 4.0-6.0 % Estimated Average Glucose (eAG) 126 70-126 mg/dL Total Calcium 8.1 L 8.5-10.1 mg/dL Total Bilirubin 1.5 H 0.2-1.0 mg/dL Direct Bilirubin 0.7 H 0.0-0.3 mg/dL Aspartate Amino Transf (AST/SGOT) 226 H 10-37 U/L Alanine Aminotransferase (ALT/SGPT) 503 H 12-78 U/L Alkaline Phosphatase 166 H 50-136 U/L Total Protein 6.4 6.0-8.3 g/dL Albumin 2.8 L 3.5-5.0 g/dL Whole Blood Glucose 89 70-110 MG/DL Lactic Acid Level 1.0 0.8-2.5 mmol/L Immature Granulocyte % (Auto) 0.2 0-1 % Neutrophils (%) (Auto) 71.9 40.0-77.0 % Lymphocytes (%) (Auto) 24.4 21.0-51.0 % Monocytes (%) (Auto) 3.5 3.0-13.0 % Eosinophils (%) (Auto) 0.0 0.0-8.0 % Basophils (%) (Auto) 0.0 0.0-5.0 % Neutrophils # (Auto) 3.1 1.8-7.7 K/uL Lymphocytes # (Auto) 1.0 1.0-4.8 K/uL Monocytes # (Auto) 0.2 0.1-1.0 K/uL Eosinophils # (Auto) 0.00 0.00-0.70 K/uL Basophils # (Auto) 0.00 0.00-0.20 K/uL Absolute Immature Granulocyte (auto 0.01 0-1 K/uL Urine Color YELLOW YELLOW Urine Appearance CLEAR CLEAR Urine pH 6.5 5.0-8.0 Urine Specific [place] 1.026 1.001-1.031 Urine Protein 10 H NEGATIVE mg/dL Urine Glucose (UA) NEGATIVE NEGATIVE mg/dL Urine Ketones 5 H NEGATIVE mg/dL Urine Occult Blood NEGATIVE NEGATIVE Urine Nitrate NEGATIVE NEGATIVE Urine Bilirubin NEGATIVE NEGATIVE mg/dL Urine Urobilinogen 4.0 H 0.2-1.0 mg/dL Urine Leukocyte Esterase NEGATIVE NEGATIVE Primo/uL Urine RBC 0-1 0-1 /HPF Urine WBC 2-5 H 0-1 /HPF Urine Squamous Epithelial Cells RARE 0-2 /HPF Urine Bacteria RARE None Seen /HPF Lipase 41 16-77 U/L Test 11/22/24 09:00 Range/Units Triglycerides Level 81 30-200 mg/dL Current Medications Medications (Trade) Dose Ordered Sig/Arvin Route PRN Reason Start Time Stop Time Status Last Admin Dose Admin Acetaminophen (TYLenol 325MG TAB) 650 mg Q4H PRN PO MILD PAIN (1-3) 11/22/24 12:00 12/22/24 11:59 Acetaminophen (TYLenol 325MG TAB) 650 mg Q6H PRN PO MILD PAIN (1-3) 11/22/24 12:00 11/22/24 12:03 DC Acetaminophen (TYLenol 325MG TAB) 650 mg Q6H PRN PO TEMPERATURE GREATER THAN 101.5 11/22/24 12:00 12/22/24 11:59 Al Hydroxide/Mg Hydroxide (MAALox PLUS 30ML) 30 ml Q6H PRN PO INDIGESTION 11/22/24 12:00 12/22/24 11:59 Ceftriaxone Sodium 2 gm/ Sodium Chloride 100 ml @ 200 mls/hr Q24H IV 11/22/24 12:00 11/22/24 12:04 DC Ceftriaxone Sodium (Rocephin 2gm Inj) 2 gm Q24H IVPB 11/22/24 13:30 12/02/24 13:29 11/22/24 13:32 2 GM Dextrose (D50w) 50 ml AD PRN IV HYPOGLYCEMIA PROTOCOL 11/22/24 12:00 12/22/24 11:59 Diphenhydramine HCl (BENAdryl INJ) 25 mg Q6H PRN IV SEVERE ITCHING/RASH 11/22/24 12:00 12/22/24 11:59 Famotidine (Pepcid 20mg Vial) 20 mg BID IV 11/22/24 21:00 12/22/24 20:59 11/23/24 07:31 20 MG Famotidine (Pepcid 20mg Vial) 20 mg BID PRN IV NAUSEA/VOMITING 11/22/24 12:00 11/22/24 12:03 DC Glucagon (Glucagon 1mg Kit) 1 mg AD PRN IM HYPOGLYCEMIA PROTOCOL 11/22/24 12:00 12/22/24 11:59 Guaifenesin/ Dextromethorphan (RobiTUSSin DM 200/20MG 10ML) 10 ml Q4H PRN PO COUGH 11/22/24 12:00 12/22/24 11:59 Heparin Sodium (Porcine) (HEParin 5,000 UNIT VIAL) 5,000 unit BID SQ 11/22/24 21:00 12/22/24 20:59 11/23/24 07:31 5,000 UNIT Hydralazine HCl (APRESOLine 20MG INJ) 10 mg Q6H PRN IV For:SBP above 160;DBP above 90 11/22/24 12:00 12/22/24 11:59 11/22/24 20:54 10 MG Ibuprofen (moTRIN) 600 mg Q8H PRN PO MODERATE PAIN (4-6) 11/22/24 12:00 11/22/24 12:03 DC Insulin Human Regular (humuLIN R 100 UNIT/ML 3ML) INSULIN SLIDING SCAL... ACHS SQ 11/22/24 16:30 12/22/24 16:29 Ketorolac Tromethamine (toRADol) 15 mg Q8H PRN IV MODERATE PAIN (4-6) 11/22/24 12:00 11/27/24 11:59 11/23/24 11:23 15 MG Lactulose (Constulose 20gm/ 30ml Udcup) 20 gm BID PRN PO CONSTIPATION 11/22/24 12:00 12/22/24 11:59 Magnesium Sulfate 50 ml @ 0 mls/hr PROTOCOL PRN IV other 11/22/24 12:00 12/22/24 11:59 Metronidazole/ Sodium Chloride (flaGYL) 500 mg Q8H IV 11/23/24 11:00 12/03/24 10:59 11/23/24 11:23 500 MG Morphine Sulfate (morPHINE 4MG SYG) 1 mg Q4H PRN IVP SEVERE PAIN (7-10) 11/22/24 12:00 11/29/24 11:59 11/22/24 17:28 1 MG Nitroglycerin (Nitrostat) 0.4 mg PROTOCOL PRN SL CHEST PAIN 11/22/24 12:00 12/22/24 11:59 Ondansetron HCl (zoFRAN 4MG INJ) 4 mg Q6H PRN IV NAUSEA/VOMITING 11/22/24 12:00 12/22/24 11:59 Oxycodone/ Acetaminophen (perCOCET) 1 tab Q6H PRN PO SEVERE PAIN (7-10) 11/22/24 12:00 11/22/24 12:03 DC Potassium Chloride 100 ml @ 100 mls/hr AD PRN IV POTASSIUM PROTOCOL 11/22/24 12:00 12/22/24 11:59 Potassium Chloride (K-Dur/Klor-Con 20meq) 20 meq AD PRN PO POTASSIUM PROTOCOL 11/22/24 12:00 12/22/24 11:59 Potassium Chloride (KCl 10% Elixir 20meq/15ml) 20 meq AD PRN PO POTASSIUM PROTOCOL 11/22/24 12:00 12/22/24 11:59 Sodium Chloride 1,000 ml @ 100 mls/hr Q10H IV 11/22/24 12:00 12/22/24 11:59 11/23/24 07:22 100 MLS/HR Zolpidem Tartrate (AmbIEN) 5 mg HS PRN PO INSOMNIA 11/22/24 12:00 12/22/24 11:59 DIAGNOSTICS / RADIOLOGY: [ ] ASSESSMENT: [ Cholelithiasis POA Possible cholecystitis POA grade 1 steatosis per ultrasound POA Elevated liver enzymes POA Uncontrolled hypertension POA Hypothyroidism POA uncontrolled diabetes mellitus type 2 with hyperglycemia POA History of History of Appendectomy History of] PLAN: [ Patient underwent MRCP and showed cholelithiasis. HIDA scan was performed pending final results. As per GI if MRCP abnormal patient will need ERCP. If HIDA scan positive for acute cholecystitis we will probably proceed with cholecystectomy. Pending further recommendations/plan by GI and surgeon. All labs and radiology was reviewed by [facility]. Patient will receive 40 mEq of potassium for potassium of 3.6. AST ALT has improved. We will continue to monitor patient in the meantime. Continue Rocephin and Flagyl. A.m. labs Patient will be admitted under hospitalist care to medical-surgical floor Chest x-ray negative Ultrasound abdomen showed cholelithiasis grade 1 hepatic steatosis of liver Hyper hypoglycemia protocol Hypomagnesemia Protocol Hypokalemia protocol Blood culture pending Culture pending PRN medications PT for further evaluation Case management for disposition] ATTESTATION BY PHYSICIAN I have seen and examined the patient. I reviewed the documentation, medical decision making, and treatment plan as noted by the mid-level provider above. I agree with the findings and plan of care. RAJAT AVENDAÑO MD, KATARZYNA B [employer] Nov 23, 2024 11:45
--- NOTE | 2024-11-23 17:21 | NUR ---
cm note met with pt and states lives with son, independent with adls/ambulation. no dme no home services. works full timeand drives.[place]states no dcneeds. Addendum: 11/23/24 at 1726 by SOLOMON PHILLIPS CM Amended: Links added.
--- NOTE | 2024-11-23 19:30 | CONS ---
GENERAL SURGERY CONSULTATION NOTE Date/Time Patient Seen: 11/23/2024 6:30 p.m. Requesting Physician: Dr. Alford Reason for Consultation: Cholelithiasis History of Present Illness: This is a 54-year-old female that presented to the emergency department for an episode of right upper quadrant abdominal pain that began two days ago. Patient said that it began after eating fried food. She says she has never had pain l johanne this before. She had some associated nausea and vomiting. She denies any fever. In the ED patient was afebrile and hemodynamically stable. She had no leukocytosis. She had minor elevations in her bilirubin and LFTs. Ultrasound was performed showing cholelithiasis without evidence of acute cholecystitis. MRCP was performed showing no choledocholithiasis. Patient has a HIDA scan pending that was performed today. Patient reports that her pain has resolved. She does feel some residual soreness. She has been tolerating clear liquids. Past Medical History: Hypothyroid Past Surgical History: Hernia repair Family History: None Social History: Nonsmoker Nondrinker Current Medications Medications (Trade) Dose Ordered Sig/Arvin Route Start Time Stop Time Status Last Admin Dose Admin Ceftriaxone Sodium 2 gm/ Sodium Chloride 100 ml @ 200 mls/hr Q24H IV 11/22/24 12:00 11/22/24 12:04 DC Ceftriaxone Sodium (Rocephin 2gm Inj) 2 gm Q24H IVPB 11/22/24 13:30 12/02/24 13:29 11/23/24 13:51 2 GM Famotidine (Pepcid 20mg Vial) 20 mg BID IV 11/22/24 21:00 12/22/24 20:59 11/23/24 07:31 20 MG Heparin Sodium (Porcine) (HEParin 5,000 UNIT VIAL) 5,000 unit BID SQ 11/22/24 21:00 12/22/24 20:59 11/23/24 07:31 5,000 UNIT Insulin Human Regular (humuLIN R 100 UNIT/ML 3ML) INSULIN SLIDING SCAL... ACHS SQ 11/22/24 16:30 12/22/24 16:29 Metronidazole/ Sodium Chloride (flaGYL) 500 mg Q8H IV 11/23/24 11:00 12/03/24 10:59 11/23/24 18:11 500 MG Sodium Chloride 1,000 ml @ 100 mls/hr Q10H IV 11/22/24 12:00 12/22/24 11:59 11/23/24 17:44 100 MLS/HR Review of Systems: CONST: No fever, fatigue, or weight changes. EYES: No recent vision problems. ENT: No congestion, ear pain, or sore throat. C/V: No chest pain, palpitations, or edema. RESP: No cough, congestion, wheezing or shortness of breath. GI: Positive for abdominal pain, nausea, vomiting, no constipation, or diarrhea. : No incontinence or dysuria. SKIN: No rash. NEURO: No headache, focal numbness or weakness, dizziness, or seizures. PSYCH: No depression or anxiety. HEME: No abnormal bruising or bleeding. LYMPH: No swollen glands. Physical Examination: GENERAL: No acute distress. HEAD: Normal with no signs of head trauma. LUNGS: Respirations nonlabored HEART: Regular rate and rhythm ABD: Soft, nondistended, nontender, no rebound, no guarding : Not examined LYMPH: No lymphadenopathy noted. EXT: No clubbing, cyanosis or edema. SKIN: No rashes or lesions noted. NEURO: Awake, alert, and oriented x3. No focal sensory or strength deficits noted. Vital Signs (last 8hr) Date Time Temp Pulse Resp B/P (MAP) Pulse Ox O2 Delivery O2 Flow Rate FiO2 11/23/24 16:24 98.8 77 18 135/69 98 Room Air 0.0 11/23/24 14:34 98 Room Air* 0 21 11/23/24 12:00 98.8 80 18 137/74 98 Room Air Laboratory: Hematology Labs: Test 11/23/24 10:02 11/22/24 09:02 Range/Units White Blood Count 9.6 4.8-10.8 K/uL Red Blood Count 5.06 4.00-5.50 MIL/uL Hemoglobin 13.9 12.0-16.0 g/dL Hematocrit 41.8 36-48 % Mean Corpuscular Volume 82.6 79-99 fL Mean Corpuscular Hemoglobin 27.5 27.0-33.0 pg Mean Corpuscular Hemoglobin Concent 33.3 32.0-36.0 g/dL Red Cell Distribution Width 14.1 11.0-15.5 % Platelet Count 143 130-400 K/uL Mean Platelet Volume 11.2 H 7.5-10.5 fL Nucleated Red Blood Cells 0.0 0.0-0.19 % Immature Granulocyte % (Auto) 0.2 0-1 % Neutrophils (%) (Auto) 71.9 40.0-77.0 % Lymphocytes (%) (Auto) 24.4 21.0-51.0 % Monocytes (%) (Auto) 3.5 3.0-13.0 % Eosinophils (%) (Auto) 0.0 0.0-8.0 % Basophils (%) (Auto) 0.0 0.0-5.0 % Neutrophils # (Auto) 3.1 1.8-7.7 K/uL Lymphocytes # (Auto) 1.0 1.0-4.8 K/uL Monocytes # (Auto) 0.2 0.1-1.0 K/uL Eosinophils # (Auto) 0.00 0.00-0.70 K/uL Basophils # (Auto) 0.00 0.00-0.20 K/uL Absolute Immature Granulocyte (auto 0.01 0-1 K/uL Chemistry Labs: Test 11/23/24 16:14 11/23/24 10:02 11/22/24 12:10 11/22/24 09:02 Range/Units Whole Blood Glucose 88 70-110 MG/DL Sodium Level 140 136-145 mmol/L Potassium Level 3.6 3.5-5.1 mmol/L Chloride Level 108 101-111 mmol/L Carbon Dioxide Level 22 21-32 mmol/L Blood Urea Nitrogen 6 L 7-18 mg/dL Creatinine 0.5 0.5-1.0 mg/dL Glomerular Filtration Rate Calc 111 >90 mL/min Random Glucose 85 70-105 mg/dL Hemoglobin A1c 6.0 4.0-6.0 % Estimated Average Glucose (eAG) 126 70-126 mg/dL Total Calcium 8.1 L 8.5-10.1 mg/dL Total Bilirubin 1.5 H 0.2-1.0 mg/dL Direct Bilirubin 0.7 H 0.0-0.3 mg/dL Aspartate Amino Transf (AST/SGOT) 226 H 10-37 U/L Alanine Aminotransferase (ALT/SGPT) 503 H 12-78 U/L Alkaline Phosphatase 166 H 50-136 U/L Total Protein 6.4 6.0-8.3 g/dL Albumin 2.8 L 3.5-5.0 g/dL Lactic Acid Level 1.0 0.8-2.5 mmol/L Lipase 41 16-77 U/L Test 11/22/24 09:00 Range/Units Triglycerides Level 81 30-200 mg/dL Diagnostics / Radiology: PATIENT: ROBERTO CATALAN MR#: [id number] : 1970 SEX: F AGE: 54 LOCATION: [facility] ORDER 0941 STATUS: REG ER REPORT#: [id number] SERVICE 0939 REASON: r/o shyam ORDERING PHYSICIAN: ELIZA DAWKINS MD PROCEDURE: ABDRUQLTD - US ABDOMINAL RUQ\LTD US ABDOMINAL RUQ\E\LTD HISTORY: r/o shyam abdominal pain COMPARISON: None FINDINGS: There is there is grade 1 hepatic steatosis of the liver.. The liver length is 11.25 cm. There are no focal liver masses. The liver is not enlarged.The gallbladder has a large gallstone in the lumen near the neck measuring 1.9 x 2 cm. The gallbladder wall thickness is 0.2 cm. The gallbladder is distended. The common bile duct measures 0.3 cm. Common duct is normal. Right kidney is normal with no evidence of mass, hydronephrosis or stone.The right kidney measures 10.8 x 4.3 x 5.0 cm. The pancreas is normal size normal echotexture. IMPRESSION: 1. Cholelithiasis 2. Grade 1 hepatic steatosis of the liver. DICTATED BY: ELLI DAVIS MD DATE: 11/22/24 1026 ELECTRONICALLY SIGNED BY: ELLI DAVIS MD DATE: 11/22/24 1031 PATIENT: ROBERTO CATALAN MR#: [id number] : 1970 SEX: F AGE: 54 LOCATION: 1MS ORDER 1201 STATUS: ADM IN [facility] REPORT#: [id number] SERVICE 1153 REASON: cholelithiasis, cholecystitis ORDERING PHYSICIAN: SONAM ANDERSON APRN PROCEDURE: MRCP WO - MRCP(ABDWO)CHOLANGIOPANCREATOG Preface MR Cholangiopancreatography TECHNIQUE: Multiplanar images were obtained without intravenous contrast, utilizing a series of customized pulse sequences. Findings: Cholelithiasis is noted. No fluid about gallbladder. No intra or extrahepatic biliary ductal dilatation. Visualized liver, adrenal glands, kidneys, spleen, and pancreas are unremarkable. Visualized bowel is unremarkable. IMPRESSION: Cholelithiasis. No inflammatory changes about gallbladder. /Satin DICTATED BY: SHELLY SEYMOUR MD DATE: 11/23/241227 ELECTRONICALLY SIGNED BY: SHELLY SEYMOUR MD DATE: 11/23/241227 Assessment: This is a 54-year-old female with right upper quadrant abdominal pain that has resolved likely due to symptomatic cholelithiasis. Plan: HIDA scan is pending. If HIDA scan comes back positive we will plan for cholecystectomy. If the HIDA scan comes negative patient can be discharged with instructions to follow up in the my clinic for scheduling elective cholecystectomy Surgery will follow up. SHAYNA YOUSSEF DO Nov 23, 2024 19:30
[2024-11-23] MEDS: PoTASSium chloRIDE 20MEQ ER 20 MEQ ERTAB PO ONE (19:35)
[2024-11-24 03:55] VITALS: BP 125/68; PULSE 79; RESP 18; TEMP 98.1
[2024-11-24 07:41] VITALS: BP 125/73; PULSE 94; RESP 18; TEMP 98.8
[2024-11-24 08:51] VITALS: O2SAT 97
--- NOTE | 2024-11-24 10:47 | PN ---
[facility] PROGRESS NOTE Date of Service: Nov 24, 2024 Time of Service: 10:43 Attending doctor Nat SUBJECTIVE: [ 11/22 [54 years old female with a past medical history of hyperlipidemia, C- section, appendectomy,, thyroid disease, who came to emergency department with a complaint of abdominal pain RUQ on right side that radiates to her back. To pain started yesterday after she had a plate of lemon pepper wings and Coca- [employer], was going on night. This is a 1st time she had wings that were greasy in a long time and has not had similar symptoms before in the past. The pain was unbearable so patient decided to come to ER for evaluation/recommendations. Most recent vital signs temperature 98 pulse 55 respiration patient 148/60 patient is on satting 98% FVC 4.3 hemoglobin 15.4 hematocrit 40.2 platelets 188 negative for leukocytosis or nitrates. Sodium 141 potassium three point CO2 26 BUN 10 creatinine 0.6 GFR 107 lactic one point random glucose 150 0.8 AST for 0 two ALT 823 0.7 triglyceride 81 lipase 40. Ultrasound cholelithiasis grade 1 steatosis chest x-ray pending MRCP pending. We will consult GI for evaluation enzymes. Consulted cholecystitis. Patient will be admitted under hospitalist care for further evaluation/recommendations 11/23 patient was seen by nurse practitioner and physician during rounding in room number 122. Patient underwent MRCP and showed cholelithiasis. HIDA scan was performed pending final results. As per GI if MRCP abnormal patient will need ERCP. If HIDA scan positive for acute cholecystitis we will probably proceed with cholecystectomy. Pending further recommendations/plan by GI and surgeon. All labs and radiology was reviewed by [facility]. Patient will receive 40 mEq of potassium for potassium of 3.6. AST ALT has improved. We will continue to monitor patient in the meantime. Continue Rocephin and Flagyl. A.m. labs 11/24 was seen by nurse practitioner and physician during rounding in room 122. Patient was evaluated by the surgeon and per his recommendations if HIDA scan comes back positive the plan we will be cholecystectomy. If HIDA scan comes negative patient can be discharged with the instructions to follow up with his clinic for scheduling elective cholecystitis. Surgery we will follow up in the meantime. At this moment we are still pending HIDA scan results. RN we will expedite the results. Patient continues to be on Rocephin and Flagyl in the meantime. WBC 9.6. We will continue to monitor patient in the meantime. A.m. labs.] REVIEW OF SYSTEMS CONSTITUTIONAL: Denies fevers, chills, or night sweats. No unintentional weight loss reported. NEUROLOGICAL: Denies headache, amaurosis fugax, motor weakness, sensory deficit, vertigo/spinning sensation, gait abnormalities, or tremors. ENT: No hearing loss, otalgia, otorrhea, rhinitis, rhinorrhea, hoarseness, or sore throat. CARDIOVASCULAR: Denies any exertional angina, dyspnea on exertion, orthopnea, p aroxysmal nocturnal dyspnea, palpitations, life-threatening arrhythmias, claudication. PULMONARY: Denies any shortness of breath, cough, phlegm/sputum, hemoptysis, pleuritic chest pain. SLEEP: Denies morning headaches, daytime somnolence or napping. Denies difficulty falling asleep, staying asleep, waking from sleep. Denies knowledge of snoring. GASTROINTESTINAL: Denies any type of dysphagia to either liquids or solids. Denies , pyrosis, early satiety, diarrhea, constipation, or changes in stool consistency or caliber. Denies coffee-ground emesis, hematemesis, hematochezia, or melanotic stools. Complains the abdominal pain GENITOURINARY: Denies frequency, urgency, nocturia, hematuria or incontinence (Storage/Irritative symptoms.) Low urinary stream, straining to void, urinary intermittency or hesitancy, splitting of the voiding stream, terminal dribbling. ENDOCRINOLOGIC: Denies polyuria, polydipsia, polyphagia or heat/cold intolerances. HEMATOLOGIC: Denies thrombophilia/previous clots, or coagulopathy/bleeding disorders. ONCOLOGIC: Denies personal history of malignancy. DERMATOLOGIC: Denies rashes or pruritus. PSYCHIATRIC: Denies any suicidal or homicidal ideation. Denies hallucinations. PHYSICAL EXAM GENERAL APPEARANCE: The patient is awake, alert, and oriented, in no acute cardiopulmonary distress. NEUROLOGICAL: Cranial nerves II-XII grossly intact. Motor is 5/5 in bilateral upper and lower extremities proximal to distal. No sensory deficits. HEENT: Face is symmetric. Pupils are equal and reactive. Extraocular movements are intact. NECK: Supple. No JVD. No thyromegaly. No submental, submandibular, pre- /postauricular, occipital or supraclavicular lymphadenopathy. CHEST: Normal chest expansion. No Telemetry. LUNGS: Absence of any rales, rhonchi or any wheezing. CARDIOVASCULAR: Regular. S1 and S2 normal. No appreciable rubs, murmurs or gallops. ABDOMEN: Soft, nontender, and nondistended. There is no rebound, , or rigid ity.voluntary guarding : Deferred. No [place]. EXTREMITIES: Non-edematous and not cyanotic. No clubbing. Good capillary refill. SKIN: No skin breakdown. Vital Signs (last 8hr) Date Time Temp Pulse Resp B/P (MAP) Pulse Ox O2 Delivery O2 Flow Rate FiO2 11/24/24 08:51 97 Room Air* 0 21 11/24/24 07:41 98.8 94 18 125/73 97 Room Air 11/24/24 03:55 98.1 79 18 125/68 99 Room Air 0.0 LABS: Laboratory: Test 11/24/24 05:59 11/23/24 10:02 11/22/24 12:10 Range/Units Whole Blood Glucose 99 70-110 MG/DL White Blood Count 9.6 4.8-10.8 K/uL Red Blood Count 5.06 4.00-5.50 MIL/uL Hemoglobin 13.9 12.0-16.0 g/dL Hematocrit 41.8 36-48 % Mean Corpuscular Volume 82.6 79-99 fL Mean Corpuscular Hemoglobin 27.5 27.0-33.0 pg Mean Corpuscular Hemoglobin Concent 33.3 32.0-36.0 g/dL Red Cell Distribution Width 14.1 11.0-15.5 % Platelet Count 143 130-400 K/uL Mean Platelet Volume 11.2 H 7.5-10.5 fL Nucleated Red Blood Cells 0.0 0.0-0.19 % Sodium Level 140 136-145 mmol/L Potassium Level 3.6 3.5-5.1 mmol/L Chloride Level 108 101-111 mmol/L Carbon Dioxide Level 22 21-32 mmol/L Blood Urea Nitrogen 6 L 7-18 mg/dL Creatinine 0.5 0.5-1.0 mg/dL Glomerular Filtration Rate Calc 111 >90 mL/min Random Glucose 85 70-105 mg/dL Hemoglobin A1c 6.0 4.0-6.0 % Estimated Average Glucose (eAG) 126 70-126 mg/dL Total Calcium 8.1 L 8.5-10.1 mg/dL Total Bilirubin 1.5 H 0.2-1.0 mg/dL Direct Bilirubin 0.7 H 0.0-0.3 mg/dL Aspartate Amino Transf (AST/SGOT) 226 H 10-37 U/L Alanine Aminotransferase (ALT/SGPT) 503 H 12-78 U/L Alkaline Phosphatase 166 H 50-136 U/L Total Protein 6.4 6.0-8.3 g/dL Albumin 2.8 L 3.5-5.0 g/dL Lactic Acid Level 1.0 0.8-2.5 mmol/L Current Medications Medications (Trade) Dose Ordered Sig/Arvin Route PRN Reason Start Time Stop Time Status Last Admin Dose Admin Acetaminophen (TYLenol 325MG TAB) 650 mg Q4H PRN PO MILD PAIN (1-3) 11/22/24 12:00 12/22/24 11:59 Acetaminophen (TYLenol 325MG TAB) 650 mg Q6H PRN PO MILD PAIN (1-3) 11/22/24 12:00 11/22/24 12:03 DC Acetaminophen (TYLenol 325MG TAB) 650 mg Q6H PRN PO TEMPERATURE GREATER THAN 101.5 11/22/24 12:00 12/22/24 11:59 Al Hydroxide/Mg Hydroxide (MAALox PLUS 30ML) 30 ml Q6H PRN PO INDIGESTION 11/22/24 12:00 12/22/24 11:59 Ceftriaxone Sodium 2 gm/ Sodium Chloride 100 ml @ 200 mls/hr Q24H IV 11/22/24 12:00 11/22/24 12:04 DC Ceftriaxone Sodium (Rocephin 2gm Inj) 2 gm Q24H IVPB 11/22/24 13:30 12/02/24 13:29 11/23/24 13:51 2 GM Dextrose (D50w) 50 ml AD PRN IV HYPOGLYCEMIA PROTOCOL 11/22/24 12:00 12/22/24 11:59 Diphenhydramine HCl (BENAdryl INJ) 25 mg Q6H PRN IV SEVERE ITCHING/RASH 11/22/24 12:00 12/22/24 11:59 Famotidine (Pepcid 20mg Vial) 20 mg BID IV 11/22/24 21:00 12/22/24 20:59 11/24/24 08:51 20 MG Famotidine (Pepcid 20mg Vial) 20 mg BID PRN IV NAUSEA/VOMITING 11/22/24 12:00 11/22/24 12:03 DC Glucagon (Glucagon 1mg Kit) 1 mg AD PRN IM HYPOGLYCEMIA PROTOCOL 11/22/24 12:00 12/22/24 11:59 Guaifenesin/ Dextromethorphan (RobiTUSSin DM 200/20MG 10ML) 10 ml Q4H PRN PO COUGH 11/22/24 12:00 12/22/24 11:59 Heparin Sodium (Porcine) (HEParin 5,000 UNIT VIAL) 5,000 unit BID SQ 11/22/24 21:00 12/22/24 20:59 11/23/24 19:39 5,000 UNIT Hydralazine HCl (APRESOLine 20MG INJ) 10 mg Q6H PRN IV For:SBP above 160;DBP above 90 11/22/24 12:00 12/22/24 11:59 11/22/24 20:54 10 MG Ibuprofen (moTRIN) 600 mg Q8H PRN PO MODERATE PAIN (4-6) 11/22/24 12:00 11/22/24 12:03 DC Insulin Human Regular (humuLIN R 100 UNIT/ML 3ML) INSULIN SLIDING SCAL... ACHS SQ 11/22/24 16:30 12/22/24 16:29 Ketorolac Tromethamine (toRADol) 15 mg Q8H PRN IV MODERATE PAIN (4-6) 11/22/24 12:00 11/27/24 11:59 11/23/24 11:23 15 MG Lactulose (Constulose 20gm/ 30ml Udcup) 20 gm BID PRN PO CONSTIPATION 11/22/24 12:00 12/22/24 11:59 Magnesium Sulfate 50 ml @ 0 mls/hr PROTOCOL PRN IV other 11/22/24 12:00 12/22/24 11:59 Metronidazole/ Sodium Chloride (flaGYL) 500 mg Q8H IV 11/23/24 11:00 12/03/24 10:59 11/24/24 02:34 500 MG Morphine Sulfate (morPHINE 4MG SYG) 1 mg Q4H PRN IVP SEVERE PAIN (7-10) 11/22/24 12:00 11/29/24 11:59 11/22/24 17:28 1 MG Nitroglycerin (Nitrostat) 0.4 mg PROTOCOL PRN SL CHEST PAIN 11/22/24 12:00 12/22/24 11:59 Ondansetron HCl (zoFRAN 4MG INJ) 4 mg Q6H PRN IV NAUSEA/VOMITING 11/22/24 12:00 12/22/24 11:59 Oxycodone/ Acetaminophen (perCOCET) 1 tab Q6H PRN PO SEVERE PAIN (7-10) 11/22/24 12:00 11/22/24 12:03 DC Potassium Chloride 100 ml @ 100 mls/hr AD PRN IV POTASSIUM PROTOCOL 11/22/24 12:00 12/22/24 11:59 Potassium Chloride (K-Dur/Klor-Con 20meq) 20 meq AD PRN PO POTASSIUM PROTOCOL 11/22/24 12:00 12/22/24 11:59 Potassium Chloride (KCl 10% Elixir 20meq/15ml) 20 meq AD PRN PO POTASSIUM PROTOCOL 11/22/24 12:00 12/22/24 11:59 Sodium Chloride 1,000 ml @ 100 mls/hr Q10H IV 11/22/24 12:00 12/22/24 11:59 11/24/24 03:58 100 MLS/HR Zolpidem Tartrate (AmbIEN) 5 mg HS PRN PO INSOMNIA 11/22/24 12:00 12/22/24 11:59 DIAGNOSTICS / RADIOLOGY: [ ] ASSESSMENT: [ Cholelithiasis POA Possible cholecystitis POA grade 1 steatosis per ultrasound POA Elevated liver enzymes POA Uncontrolled hypertension POA Hypothyroidism POA uncontrolled diabetes mellitus type 2 with hyperglycemia POA History of History of Appendectomy History of] PLAN: [ Patient was evaluated by the surgeon and per his recommendations if HIDA scan comes back positive the plan we will be cholecystectomy. If HIDA scan comes negative patient can be discharged with the instructions to follow up with his clinic for scheduling elective cholecystitis. Surgery we will follow up in the meantime. At this moment we are still pending HIDA scan results. RN we will expedite the results. Patient continues to be on Rocephin and Flagyl in the meantime. WBC 9.6. We will continue to monitor patient in the meantime. A.m. labs. Patient admitted under hospitalist care to medical-surgical floor Chest x-ray negative Ultrasound abdomen showed cholelithiasis grade 1 hepatic steatosis of liver Hyper hypoglycemia protocol Hypomagnesemia Protocol Hypokalemia protocol Culture showed mixed michael pending PRN medications PT for further evaluation Case management for disposition] ATTESTATION BY PHYSICIAN I have seen and examined the patient. I reviewed the documentation, medical decision making, and treatment plan as noted by the mid-level provider above. I agree with the findings and plan of care. Monika Johns MD, [facility] [employer] REPRESENTATIVE Nov 24, 2024 10:47
[2024-11-24 11:14] LABS: IMMATURE GRANULOCYTE ABSOLUTE 0.02 K/uL (0-1); NUCLEATED RED BLOOD CELLS 0.0 % (0.0-0.19); PLATELET COUNT (AUTO) 167 K/uL (130-400); RED BLOOD CELL COUNT(AUTO) 5.25 MIL/uL (4.00-5.50); RED CELL DISTRIBUTION WIDTH 14.1 % (11.0-15.5); WHITE BLOOD COUNT (AUTO) 9.7 K/uL (4.8-10.8)
[2024-11-24 11:25] LABS: ASPARTATE AMINOTRANSFERASE 155.0 U/L (10-37); CREATININE 0.3 mg/dL (0.5-1.0); GLOMERULAR FILTR. RATE CALC 126.0 mL/min (>90); GLUCOSE,RANDOM 96.0 mg/dL (70-105); SODIUM SERUM 136.0 mmol/L (136-145); TOTAL PROTEIN, SERUM 7.1 g/dL (6.0-8.3); UREA NITROGEN, BLOOD 7.0 mg/dL (7-18)
[2024-11-24 11:54] VITALS: BP 128/81; PULSE 80; RESP 18; TEMP 99.1
[2024-11-24 16:49] VITALS: BP 120/74; PULSE 77; RESP 18; TEMP 98.4
[2024-11-24 20:00] VITALS: BP 130/75; PULSE 79; RESP 17; TEMP 98.3; O2SAT 99
--- NOTE | 2024-11-24 22:11 | HMCIMG ---
Examination Hepatobiliary study History CHOLECYSTITIS (Hx) / CHOLECYSTITIS, Static Images (DICOM Hx) (DICOM Hx) Technique mCi Tc-99m mebrofenin were administered intravenously followed by acquisition of planar images of the abdomen. Findings Following administration of radiotracer, there is prompt appearance of normal hepatic contours, followed by appearance of activity in unremarkable appearing bile ducts. There is nonvisualization of the gallbladder at the conclusion of the examination suggesting acute cholecystitis. IMPRESSION: 1. Nonvisualization of the gallbladder, suggesting acute cholecystitis. /Tama
[2024-11-25] VITALS (22 sets, daily range): BP systolic 100–130; BP diastolic 46–75; PULSE 62–80; RESP 17–22; TEMP 97.5–98.7; O2SAT 93–98
[2024-11-25 03:47] LABS: IMMATURE GRANULOCYTE ABSOLUTE 0.02 K/uL (0-1); NUCLEATED RED BLOOD CELLS 0.0 % (0.0-0.19); PLATELET COUNT (AUTO) 133 K/uL (130-400); RED BLOOD CELL COUNT(AUTO) 4.59 MIL/uL (4.00-5.50); RED CELL DISTRIBUTION WIDTH 14.0 % (11.0-15.5); WHITE BLOOD COUNT (AUTO) 6.0 K/uL (4.8-10.8)
[2024-11-25 04:02] LABS: ASPARTATE AMINOTRANSFERASE 107.0 U/L (10-37); CREATININE 0.5 mg/dL (0.5-1.0); GLOMERULAR FILTR. RATE CALC 111.0 mL/min (>90); GLUCOSE,RANDOM 92.0 mg/dL (70-105); SODIUM SERUM 142.0 mmol/L (136-145); TOTAL PROTEIN, SERUM 6.2 g/dL (6.0-8.3); UREA NITROGEN, BLOOD 8.0 mg/dL (7-18)
--- NOTE | 2024-11-25 12:28 | PN ---
GENERAL SURGERY PROGRESS NOTE Date/Time Patient Seen: [ 11/25/2024 10:00 AM] Problem List: [54-year-old female admitted for cholelithiasis with possible cholecystitis ] Interval History: [Patient's HIDA scan was positive for cholecystitis MRCP was negative for choledocholithiasis Patient continues with right upper quadrant pain WBCs 6.0 H&H 12.6 and 38.4 with normal platelets Bilirubin trending down to 1.8 LFTs trending down as well Patient has been NPO since yesterday ] Current Medications Medications (Trade) Dose Ordered Sig/Arvin Route Start Time Stop Time Status Last Admin Dose Admin Ceftriaxone Sodium 2 gm/ Sodium Chloride 100 ml @ 200 mls/hr Q24H IV 11/22/24 12:00 11/22/24 12:04 DC Ceftriaxone Sodium (Rocephin 2gm Inj) 2 gm Q24H IVPB 11/22/24 13:30 12/02/24 13:29 11/24/24 12:10 2 GM Famotidine (Pepcid 20mg Vial) 20 mg BID IV 11/22/24 21:00 12/22/24 20:59 11/25/24 07:57 20 MG Heparin Sodium (Porcine) (HEParin 5,000 UNIT VIAL) 5,000 unit BID SQ 11/22/24 21:00 12/22/24 20:59 11/24/24 19:49 5,000 UNIT Insulin Human Regular (humuLIN R 100 UNIT/ML 3ML) INSULIN SLIDING SCAL... ACHS SQ 11/22/24 16:30 12/22/24 16:29 Metronidazole/ Sodium Chloride (flaGYL) 500 mg Q8H IV 11/23/24 11:00 12/03/24 10:59 11/25/24 10:25 500 MG Sodium Chloride 1,000 ml @ 100 mls/hr Q10H IV 11/22/24 12:00 12/22/24 11:59 11/25/24 10:24 100 MLS/HR Physical Examination: GENERAL: [No acute distress, female, comfortably resting in bed.] HEAD: [Normocephalic] EYES: [Nonicteric sclera bilaterally.] ENT: [Hearing grossly intact.] NECK: [Supple without JVD.] LUNGS: [Clear breath sounds bilaterally.] HEART: [Normal rate and rhythm.] VASC: [Peripheral pulses +2 bilaterally.] ABD: [+RUQ pain on palpation, soft, no guarding or rigidity] : [Not examined] EXT: [No edema.] SKIN: [No rashes or lesions noted.] NEURO: [Awake, alert, and oriented x3. No focal sensory or strength deficits noted.] Vital Signs (last 8hr) Date Time Temp Pulse Resp B/P (MAP) Pulse Ox O2 Delivery O2 Flow Rate FiO2 11/25/24 07:30 98 Room Air* 0 21 11/25/24 07:25 98.2 71 18 122/70 98 Room Air 0.0 Laboratory: [ ] Hematology Labs: Test 11/25/24 03:30 Range/Units White Blood Count 6.0 # 4.8-10.8 K/uL Red Blood Count 4.59 4.00-5.50 MIL/uL Hemoglobin 12.6 12.0-16.0 g/dL Hematocrit 38.4 36-48 % Mean Corpuscular Volume 83.7 79-99 fL Mean Corpuscular Hemoglobin 27.5 27.0-33.0 pg Mean Corpuscular Hemoglobin Concent 32.8 32.0-36.0 g/dL Red Cell Distribution Width 14.0 11.0-15.5 % Platelet Count 133 130-400 K/uL Mean Platelet Volume 10.7 H 7.5-10.5 fL Immature Granulocyte % (Auto) 0.3 0-1 % Neutrophils (%) (Auto) 73.3 40.0-77.0 % Lymphocytes (%) (Auto) 19.7 L 21.0-51.0 % Monocytes (%) (Auto) 6.5 3.0-13.0 % Eosinophils (%) (Auto) 0.2 0.0-8.0 % Basophils (%) (Auto) 0.0 0.0-5.0 % Neutrophils # (Auto) 4.4 1.8-7.7 K/uL Lymphocytes # (Auto) 1.2 1.0-4.8 K/uL Monocytes # (Auto) 0.4 0.1-1.0 K/uL Eosinophils # (Auto) 0.01 0.00-0.70 K/uL Basophils # (Auto) 0.00 0.00-0.20 K/uL Absolute Immature Granulocyte (auto 0.02 0-1 K/uL Nucleated Red Blood Cells 0.0 0.0-0.19 % Chemistry Labs: Test 11/25/24 11:17 11/25/24 03:30 Range/Units Whole Blood Glucose 77 70-110 MG/DL Sodium Level 142 136-145 mmol/L Potassium Level 3.8 3.5-5.1 mmol/L Chloride Level 110 101-111 mmol/L Carbon Dioxide Level 25 21-32 mmol/L Blood Urea Nitrogen 8 7-18 mg/dL Creatinine 0.5 0.5-1.0 mg/dL Glomerular Filtration Rate Calc 111 >90 mL/min Random Glucose 92 70-105 mg/dL Total Calcium 7.8 L 8.5-10.1 mg/dL Magnesium Level 1.90 1.80-2.40 mg/dL Total Bilirubin 1.1 #H 0.2-1.0 mg/dL Direct Bilirubin 0.7 H 0.0-0.3 mg/dL Aspartate Amino Transf (AST/SGOT) 107 H 10-37 U/L Alanine Aminotransferase (ALT/SGPT) 292 #H 12-78 U/L Alkaline Phosphatase 133 50-136 U/L Total Protein 6.2 6.0-8.3 g/dL Albumin 2.4 L 3.5-5.0 g/dL Diagnostics / Radiology: [place] [address] IMAGING REPORT Signed PATIENT: ROBERTO CATALAN MR#: [id number] : 1970 SEX: F AGE: 54 LOCATION: 1MS ORDER 02 STATUS: ADM IN REPORT#: [id number] SERVICE 140 REASON: CHOLECYSTITIS ORDERING PHYSICIAN: SONAM ANDERSON APRN PROCEDURE: HIDAWO - NM HIDA WO EF/CCK Examination Hepatobiliary study History CHOLECYSTITIS (Hx) / CHOLECYSTITIS, Static Images (DICOM Hx) (DICOM Hx) Technique mCi Tc-99m mebrofenin were administered intravenously followed by acquisition of planar images of the abdomen. Findings Following administration of radiotracer, there is prompt appearance of normal hepatic contours, followed by appearance of activity in unremarkable appearing bile ducts. There is nonvisualization of the gallbladder at the conclusion of the examination suggesting acute cholecystitis. IMPRESSION: 1. Nonvisualization of the gallbladder, suggesting acute cholecystitis. /[place] DICTATED BY: BRYCE CORRALES Jr., MD DATE: 11/24/242309 ELECTRONICALLY SIGNED BY: BRYCE CORRALES Jr., MD DATE: 11/24/242309 Impression and Plan: [I spoke with Dr. Marte regarding positive HIDA, we will be taking patient to the OR today Keep patient NPO Obtain consent for robotic cholecystectomy, possible open cholecystectomy by Dr. Marte Patient was instructed on risks of surgery includes bleeding, infection, delayed wound healing, DVT/PE and/or injury to other organs Patient verbalized understanding well and agrees to proceed with scheduled surgery Continue with IV fluids and IV antibiotics Surgical team will continue to follow Dr. Marte updated on patient's status Surgical case has been discussed with my supervising physician Plan of care was formulated and agreed upon We appreciate the hospitalist team for allowing us to participate in this patient's care Greater than 45 minutes spent examining patient, reviewing the chart and working on documentation] ATTESTATION BY PHYSICIAN I have seen and examined the patient. I reviewed the documentation, medical decision making, and treatment plan as noted by the mid-level provider above. I agree with the findings and plan of care. MD KWADWO Rangel LETICIA A [facility] Nov 25, 2024 12:28
--- NOTE | 2024-11-25 13:03 | PN ---
[facility] PROGRESS NOTE Date of Service: Nov 25, 2024 Time of Service: 12:55 SUBJECTIVE: [ 11/22 [54 years old female with a past medical history of hyperlipidemia, C- section, appendectomy,, thyroid disease, who came to emergency department with a complaint of abdominal pain RUQ on right side that radiates to her back. To pain started yesterday after she had a plate of lemon pepper wings and Coca- [employer], was going on night. This is a 1st time she had wings that were greasy in a long time and has not had similar symptoms before in the past. The pain was unbearable so patient decided to come to ER for evaluation/recommendations. Most recent vital signs temperature 98 pulse 55 respiration patient 148/60 patient is on satting 98% FVC 4.3 hemoglobin 15.4 hematocrit 40.2 platelets 188 negative for leukocytosis or nitrates. Sodium 141 potassium three point CO2 26 BUN 10 creatinine 0.6 GFR 107 lactic one point random glucose 150 0.8 AST for 0 two ALT 823 0.7 triglyceride 81 lipase 40. Ultrasound cholelithiasis grade [address] eatosis chest x-ray pending MRCP pending. We will consult GI for evaluation enzymes. Consulted cholecystitis. Patient will be admitted under hospitalist care for further evaluation/recommendations 11/23 patient was seen by nurse practitioner and physician during rounding in room number 122. Patient underwent MRCP and showed cholelithiasis. HIDA scan was performed pending final results. As per GI if MRCP abnormal patient will need ERCP. If HIDA scan positive for acute cholecystitis we will probably p roceed with cholecystectomy. Pending further recommendations/plan by GI and surgeon. All labs and radiology was reviewed by HOUSE DESIGNER H&H mar. Patient will receive 40 mEq of potassium for potassium of 3.6. AST ALT has improved. We will continue to monitor patient in the meantime. Continue Rocephin and Flagyl. A.m. labs 11/24 was seen by nurse practitioner and physician during rounding in room 122. Patient was evaluated by the surgeon and per his recommendations if HIDA scan comes back positive the plan we will be cholecystectomy. If HIDA scan comes negative patient can be discharged with the instructions to follow up with his clinic for scheduling elective cholecystitis. Surgery we will follow up in the meantime. At this moment we are still pending HIDA scan results. RN we will expedite the results. Patient continues to be on Rocephin and Flagyl in the meantime. WBC 9.6. We will continue to monitor patient in the meantime. A.m. labs. 11/25/24 Patient was evaluated this morning, HIDA Scan showed nonvisualization of the gallbladder, suggesting acute cholecystitis. Surgery team followed up today, plan is robotic shyam possible open. She will remain NPO. Her abdominal pain improved. ] REVIEW OF SYSTEMS CONSTITUTIONAL: Denies fevers, chills, or night sweats. No unintentional weight loss reported. NEUROLOGICAL: Denies headache, amaurosis fugax, motor weakness, sensory deficit, vertigo/spinning sensation, gait abnormalities, or tremors. ENT: No hearing loss, otalgia, otorrhea, rhinitis, rhinorrhea, hoarseness, or sore throat. CARDIOVASCULAR: Denies any exertional angina, dyspnea on exertion, orthopnea, paroxysmal nocturnal dyspnea, palpitations, life-threatening arrhythmias, claudication. PULMONARY: Denies any shortness of breath, cough, phlegm/sputum, hemoptysis, pleuritic chest pain. SLEEP: Denies morning headaches, daytime somnolence or napping. Denies difficulty falling asleep, staying asleep, waking from sleep. Denies knowledge of snoring. GASTROINTESTINAL: Denies any type of dysphagia to either liquids or solids. Denies , pyrosis, early satiety, diarrhea, constipation, or changes in stool consistency or caliber. Denies coffee-ground emesis, hematemesis, hematochezia, or melanotic stools. Complains the abdominal pain GENITOURINARY: Denies frequency, urgency, nocturia, hematuria or incontinence (Storage/Irritative symptoms.) Low urinary stream, straining to void, urinary intermittency or hesitancy, splitting of the voiding stream, terminal dribbling. ENDOCRINOLOGIC: Denies polyuria, polydipsia, polyphagia or heat/cold intolerances. HEMATOLOGIC: Denies thrombophilia/previous clots, or coagulopathy/bleeding disorders. ONCOLOGIC: Denies personal history of malignancy. DERMATOLOGIC: Denies rashes or pruritus. PSYCHIATRIC: Denies any suicidal or homicidal ideation. Denies hallucinations. PHYSICAL EXAM GENERAL APPEARANCE: The patient is awake, alert, and oriented, in no acute cardiopulmonary distress. NEUROLOGICAL: Cranial nerves II-XII grossly intact. Motor is 5/5 in bilateral upper and lower extremities proximal to distal. No sensory deficits. HEENT: Face is symmetric. Pupils are equal and reactive. Extraocular movements are intact. NECK: Supple. No JVD. No thyromegaly. No submental, submandibular, pre-/pos tauricular, occipital or supraclavicular lymphadenopathy. CHEST: Normal chest expansion. No Telemetry. LUNGS: Absence of any rales, rhonchi or any wheezing. CARDIOVASCULAR: Regular. S1 and S2 normal. No appreciable rubs, murmurs or gallops. ABDOMEN: Soft, nontender, and nondistended. There is no rebound, , or rigidity.voluntary guarding : Deferred. No [place]. EXTREMITIES: Non-edematous and not cyanotic. No clubbing. Good capillary refill. SKIN: No skin breakdown. Vital Signs (last 8hr) Date Time Temp Pulse Resp B/P (MAP) Pulse Ox O2 Delivery O2 Flow Rate FiO2 11/25/24 07:30 98 Room Air* 0 21 11/25/24 07:25 98.2 71 18 122/70 98 Room Air 0.0 LABS: Laboratory: Test 11/25/24 11:17 11/25/24 03:30 Range/Units Whole Blood Glucose 77 70-110 MG/DL White Blood Count 6.0 # 4.8-10.8 K/uL Red Blood Count 4.59 4.00-5.50 MIL/uL Hemoglobin 12.6 12.0-16.0 g/dL Hematocrit 38.4 36-48 % Mean Corpuscular Volume 83.7 79-99 fL Mean Corpuscular Hemoglobin 27.5 27.0-33.0 pg Mean Corpuscular Hemoglobin Concent 32.8 32.0-36.0 g/dL Red Cell Distribution Width 14.0 11.0-15.5 % Platelet Count 133 130-400 K/uL Mean Platelet Volume 10.7 H 7.5-10.5 fL Immature Granulocyte % (Auto) 0.3 0-1 % Neutrophils (%) (Auto) 73.3 40.0-77.0 % Lymphocytes (%) (Auto) 19.7 L 21.0-51.0 % Monocytes (%) (Auto) 6.5 3.0-13.0 % Eosinophils (%) (Auto) 0.2 0.0-8.0 % Basophils (%) (Auto) 0.0 0.0-5.0 % Neutrophils # (Auto) 4.4 1.8-7.7 K/uL Lymphocytes # (Auto) 1.2 1.0-4.8 K/uL Monocytes # (Auto) 0.4 0.1-1.0 K/uL Eosinophils # (Auto) 0.01 0.00-0.70 K/uL Basophils # (Auto) 0.00 0.00-0.20 K/uL Absolute Immature Granulocyte (auto 0.02 0-1 K/uL Nucleated Red Blood Cells 0.0 0.0-0.19 % Sodium Level 142 136-145 mmol/L Potassium Level 3.8 3.5-5.1 mmol/L Chloride Level 110 101-111 mmol/L Carbon Dioxide Level 25 21-32 mmol/L Blood Urea Nitrogen 8 7-18 mg/dL Creatinine 0.5 0.5-1.0 mg/dL Glomerular Filtration Rate Calc 111 >90 mL/min Random Glucose 92 70-105 mg/dL Total Calcium 7.8 L 8.5-10.1 mg/dL Magnesium Level 1.90 1.80-2.40 mg/dL Total Bilirubin 1.1 #H 0.2-1.0 mg/dL Direct Bilirubin 0.7 H 0.0-0.3 mg/dL Aspartate Amino Transf (AST/SGOT) 107 H 10-37 U/L Alanine Aminotransferase (ALT/SGPT) 292 #H 12-78 U/L Alkaline Phosphatase 133 50-136 U/L Total Protein 6.2 6.0-8.3 g/dL Albumin 2.4 L 3.5-5.0 g/dL Current Medications Medications (Trade) Dose Ordered Sig/Arvin Route PRN Reason Start Time Stop Time Status Last Admin Dose Admin Acetaminophen (TYLenol 325MG TAB) 650 mg Q4H PRN PO MILD PAIN (1-3) 11/22/24 12:00 12/22/24 11:59 Acetaminophen (TYLenol 325MG TAB) 650 mg Q6H PRN PO MILD PAIN (1-3) 11/22/24 12:00 11/22/24 12:03 DC Acetaminophen (TYLenol 325MG TAB) 650 mg Q6H PRN PO TEMPERATURE GREATER THAN 101.5 11/22/24 12:00 12/22/24 11:59 Al Hydroxide/Mg Hydroxide (MAALox PLUS 30ML) 30 ml Q6H PRN PO INDIGESTION 11/22/24 12:00 12/22/24 11:59 Ceftriaxone Sodium 2 gm/ Sodium Chloride 100 ml @ 200 mls/hr Q24H IV 11/22/24 12:00 11/22/24 12:04 DC Ceftriaxone Sodium (Rocephin 2gm Inj) 2 gm Q24H IVPB 11/22/24 13:30 12/02/24 13:29 11/25/24 12:42 2 GM Dextrose (D50w) 50 ml AD PRN IV HYPOGLYCEMIA PROTOCOL 11/22/24 12:00 12/22/24 11:59 Diphenhydramine HCl (BENAdryl INJ) 25 mg Q6H PRN IV SEVERE ITCHING/RASH 11/22/24 12:00 12/22/24 11:59 Famotidine (Pepcid 20mg Vial) 20 mg BID IV 11/22/24 21:00 12/22/24 20:59 11/25/24 07:57 20 MG Famotidine (Pepcid 20mg Vial) 20 mg BID PRN IV NAUSEA/VOMITING 11/22/24 12:00 11/22/24 12:03 DC Glucagon (Glucagon 1mg Kit) 1 mg AD PRN IM HYPOGLYCEMIA PROTOCOL 11/22/24 12:00 12/22/24 11:59 Guaifenesin/ Dextromethorphan (RobiTUSSin DM 200/20MG 10ML) 10 ml Q4H PRN PO COUGH 11/22/24 12:00 12/22/24 11:59 Heparin Sodium (Porcine) (HEParin 5,000 UNIT VIAL) 5,000 unit BID SQ 11/22/24 21:00 12/22/24 20:59 11/24/24 19:49 5,000 UNIT Hydralazine HCl (APRESOLine 20MG INJ) 10 mg Q6H PRN IV For:SBP above 160;DBP above 90 11/22/24 12:00 12/22/24 11:59 11/22/24 20:54 10 MG Ibuprofen (moTRIN) 600 mg Q8H PRN PO MODERATE PAIN (4-6) 11/22/24 12:00 11/22/24 12:03 DC Insulin Human Regular (humuLIN R 100 UNIT/ML 3ML) INSULIN SLIDING SCAL... ACHS SQ 11/22/24 16:30 12/22/24 16:29 Ketorolac Tromethamine (toRADol) 15 mg Q8H PRN IV MODERATE PAIN (4-6) 11/22/24 12:00 11/27/24 11:59 11/24/24 23:18 15 MG Lactulose (Constulose 20gm/ 30ml Udcup) 20 gm BID PRN PO CONSTIPATION 11/22/24 12:00 12/22/24 11:59 Magnesium Sulfate 50 ml @ 0 mls/hr PROTOCOL PRN IV other 11/22/24 12:00 12/22/24 11:59 Metronidazole/ Sodium Chloride (flaGYL) 500 mg Q8H IV 11/23/24 11:00 12/03/24 10:59 11/25/24 10:25 500 MG Morphine Sulfate (morPHINE 4MG SYG) 1 mg Q4H PRN IVP SEVERE PAIN (7-10) 11/22/24 12:00 11/29/24 11:59 11/22/24 17:28 1 MG Nitroglycerin (Nitrostat) 0.4 mg PROTOCOL PRN SL CHEST PAIN 11/22/24 12:00 12/22/24 11:59 Ondansetron HCl (zoFRAN 4MG INJ) 4 mg Q6H PRN IV NAUSEA/VOMITING 11/22/24 12:00 12/22/24 11:59 Oxycodone/ Acetaminophen (perCOCET) 1 tab Q6H PRN PO SEVERE PAIN (7-10) 11/22/24 12:00 11/22/24 12:03 DC Potassium Chloride 100 ml @ 100 mls/hr AD PRN IV POTASSIUM PROTOCOL 11/22/24 12:00 12/22/24 11:59 Potassium Chloride (K-Dur/Klor-Con 20meq) 20 meq AD PRN PO POTASSIUM PROTOCOL 11/22/24 12:00 12/22/24 11:59 Potassium Chloride (KCl 10% Elixir 20meq/15ml) 20 meq AD PRN PO POTASSIUM PROTOCOL 11/22/24 12:00 12/22/24 11:59 Sodium Chloride 1,000 ml @ 100 mls/hr Q10H IV 11/22/24 12:00 11/3/25 11:59 11/25/24 10:24 100 MLS/HR Zolpidem Tartrate (AmbIEN) 5 mg HS PRN PO INSOMNIA 11/22/24 12:00 12/22/24 11:59 DIAGNOSTICS / RADIOLOGY: [ ] ASSESSMENT: [ Cholelithiasis POA Possible cholecystitis POA grade 1 steatosis per ultrasound POA Elevated liver enzymes POA Uncontrolled hypertension POA Hypothyroidism POA uncontrolled diabetes mellitus type 2 with hyperglycemia POA History of History of Appendectomy ] PLAN: [ Patient was evaluated by the surgeon and per his recommendations if HIDA scan comes back positive the plan we will be cholecystectomy. If HIDA scan comes negative patient can be discharged with the instructions to follow up with his clinic for scheduling elective cholecystitis. Surgery we will follow up in the meantime. HIDA scan positive for acute cholecystitis . Patient admitted under hospitalist care to medical-surgical floor Chest x-ray negative Ultrasound abdomen showed cholelithiasis grade 1 hepatic steatosis of liver For acute cholecystitis Surgeon plans for robotic Hyper hypoglycemia protocol Hypomagnesemia Protocol Hypokalemia protocol Culture showed mixed michael Continue with supportive care Case was seen and examined with Dr. Dover, above plan was formulated ] ATTESTATION BY PHYSICIAN I have seen and examined the patient. I reviewed the documentation, medical decision making, and treatment plan as noted by the mid-level provider above. I agree with the findings and plan of care. Monika Johns MD, JANICE B AGPCNP Nov 25, 2024 13:03
--- NOTE | 2024-11-25 13:10 | NUR ---
PT TAKEN DOWN FOR PROCEDURE.
[2024-11-25] MEDS ORDERED: MIDAZOLAM HCL 1 MG/ML 2ML VIAL ONE (13:22)
[2024-11-25] MEDS ORDERED: LIDOCAINE 1%-EPI 1:100,000 20 ML VIAL ONE (14:59)
--- NOTE | 2024-11-25 16:49 | OP ---
Operative Note: DATE OF PROCEDURE: 11/25/24 SURGEON: SHAYNA YOUSSEF DO UPHOLSTERED GOODS CRAFTER: None ANESTHESIA: general ANESTHESIOLOGIST/WARE SERVER: Gene Galvez CRNA PREOPERATIVE DIAGNOSIS: Acute cholecystitis POSTOPERATIVE DIAGNOSIS: Acute cholecystitis SYNOPSIS: None PROCEDURE: Robotic assisted laparoscopic cholecystectomy ESTIMATED BLOOD LOSS: 100 cc INDICATIONS: This is a 54-year-old female that presented to the emergency department for several days of right upper quadrant abdominal pain. She has had similar previous episodes in the past. Patient was found to have no leukocytosis. Normal LFTs. Ultrasound showed cholelithiasis. HIDA scan was performed showing nonfilling of the gallbladder consistent with acute cholecys titis. I recommended robotic cholecystectomy. I discussed the procedure in detail with the patient. All questions were answered. The patient expressed understanding and agreement with the plan. DESCRIPTION OF PROCEDURE: Patient was placed on the operating table in the supine position with arms tucked. After adequate sedation the patient was intubated by anesthesia. Perioperative antibiotics were given. The patient's abdomen was prepped and draped in the usual sterile fashion. A transverse supraumbilical skin incision was made and dissection was carried down to the level of the fascia. The fascia was elevated with Derick clamps and incised. The peritoneum was entered bluntly and a 12 mm balloon Dawn port was placed. The abdomen was insufflated and the patient tolerated insufflation well. A camera was inserted and all 4 quadrants of the abdomen were inspected. No appa rent gross abnormality was seen as well as no evidence of inadvertent injury on entry. Three robotic ports were placed in the left and right upper quadrant under direct visualization. The patient was placed in head up and right side up position. The robot was docked. adhesions of the omentum and colon were taken down bluntly using suction oil well gun perforator operator. The gallbladder was hydropic so a small hole was made in the fundus and the gallbladder was suctioned decompressed. The gallbladder was grasped at its fundus and retracted cephalad. Thin adhesions to the duodenum were taken down bluntly. Once the Jones's pouch was visualized dissection was carried out around the hepatocystic triangle until a single ductal structure was seen exiting the tapering Jones's pouch. After critical view was achieved the cystic artery was serially clipped and ligated and the cystic duct was serially clipped and ligated. The gallbladder was removed from the fossa using electrocautery and placed in an Endo Catch bag for later r etrieval. The liver was inspected for hemostasis. Small bleeding edges of the liver were cauterized. Once hemostasis was achieved the right upper quadrant was irrigated with sterile saline. The robot was undocked. The area was again checked and found to be hemostatic. The robotic ports were removed under direct visualization and found to be hemostatic. The gallbladder was removed and handed off for routine pathology. The fascia of the 12 mm port site was approximated using a single [id number] suture of 0 Vicryl. The port sites were irrigated with saline. The skin was approximated with 4-0 Monocryl in a subcuticular fashion. The wounds were dressed with Dermabond. All instrument, needle, and sponge counts were correct at the end of the procedure. The patient tolerated the procedure well. The patient was aroused from sedation, extubated, and transferred to the postanesthesia care unit in good condition. SHAYNA YOUSSEF DO Nov 25, 2024 16:49
[2024-11-25] MEDS ORDERED: GLYCOPYRROLATE 0.2 MG/ML 5 ML VIAL ONE (16:50)
[2024-11-25] MEDS ORDERED: NEOSTIGMINE METHYLSULFATE 1MG/ML IV ONE (16:50)
[2024-11-25] MEDS ORDERED: SUGAMMADEX SODIUM 200 MG/2 ML VIAL IV ONE (16:56)
--- NOTE | 2024-11-25 18:00 | NUR ---
PT RETURN FROM PROCEDURE. DENIES ANY PAIN AT THE MOMENT. FAMILY AT BEDSIDE. 4 DERMABOND INCISIONS CLEAN AND DRY. BED POSITION IN LOWEST POSITION CALL LIGHT WITH IN REACH.
[2024-11-26 03:37] LABS: NUCLEATED RED BLOOD CELLS 0.0 % (0.0-0.19); PLATELET COUNT (AUTO) 145.0 K/uL (130-400); RED BLOOD CELL COUNT(AUTO) 4.3 MIL/uL (4.00-5.50); RED CELL DISTRIBUTION WIDTH 13.8 % (11.0-15.5); WHITE BLOOD COUNT (AUTO) 5.1 K/uL (4.8-10.8)
[2024-11-26 03:57] LABS: ASPARTATE AMINOTRANSFERASE 88.0 U/L (10-37); CREATININE 0.4 mg/dL (0.5-1.0); GLOMERULAR FILTR. RATE CALC 118.0 mL/min (>90); GLUCOSE,RANDOM 118.0 mg/dL (70-105); SODIUM SERUM 141.0 mmol/L (136-145); TOTAL PROTEIN, SERUM 5.8 g/dL (6.0-8.3); UREA NITROGEN, BLOOD 8.0 mg/dL (7-18)
[2024-11-26 04:00] VITALS: BP 111/56; PULSE 58; RESP 18; TEMP 97.4
[2024-11-26 07:50] VITALS: BP 123/63; PULSE 56; RESP 16; TEMP 98.6
[2024-11-26 08:00] VITALS: O2SAT 97
[2024-11-26 11:40] VITALS: BP 117/69; PULSE 68; RESP 18; TEMP 97.7
[2024-11-26 16:00] VITALS: BP 125/77; PULSE 75; RESP 14; TEMP 98.1
--- NOTE | 2024-11-26 17:10 | PN ---
[facility] PROGRESS NOTE Date of Service: Nov 26, 2024 Time of Service: 17:05 SUBJECTIVE: [ 11/22 [54 years old female with a past medical history of hyperlipidemia, C- section, appendectomy,, thyroid disease, who came to emergency department with a complaint of abdominal pain RUQ on right side that radiates to her back. To pain started yesterday after she had a plate of lemon pepper wings and Coca- Cola, was going on night. This is a 1st time she had wings that were greasy in a long time and has not had similar symptoms before in the past. The pain was unbearable so patient decided to come to ER for evaluation/recommendations. Most recent vital signs temperature 98 pulse 55 respiration patient 148/60 patient is on satting 98% FVC 4.3 hemoglobin 15.4 hematocrit 40.2 platelets 188 negative for leukocytosis or nitrates. Sodium 141 potassium three point CO2 26 BUN 10 creatinine 0.6 GFR 107 lactic one point random glucose 150 0.8 AST for 0 two ALT 823 0.7 triglyceride 81 lipase 40. Ultrasound cholelithiasis grade 1 [address] eatosis chest x-ray pending MRCP pending. We will consult GI for evaluation enzymes. Consulted cholecystitis. Patient will be admitted under hospitalist care for further evaluation/recommendations 11/23 patient was seen by nurse practitioner and physician during rounding in room number 122. Patient underwent MRCP and showed cholelithiasis. HIDA scan was performed pending final results. As per GI if MRCP abnormal patient will need ERCP. If HIDA scan positive for acute cholecystitis we will probably p roceed with cholecystectomy. Pending further recommendations/plan by GI and surgeon. All labs and radiology was reviewed by [employer] [facility]. Patient will receive 40 mEq of potassium for potassium of 3.6. AST ALT has improved. We will continue to monitor patient in the meantime. Continue Rocephin and Flagyl. A.m. labs 11/24 was seen by nurse practitioner and physician during rounding in room 122. Patient was evaluated by the surgeon and per his recommendations if HIDA scan comes back positive the plan we will be cholecystectomy. If HIDA scan comes negative patient can be discharged with the instructions to follow up with his clinic for scheduling elective cholecystitis. Surgery we will follow up in the meantime. At this moment we are still pending HIDA scan results. RN we will expedite the results. Patient continues to be on Rocephin and Flagyl in the meantime. WBC 9.6. We will continue to monitor patient in the meantime. A.m. labs. 11/25/24 Patient was evaluated this morning, HIDA Scan showed nonvisualization of the gallbladder, suggesting acute cholecystitis. Surgery team followed up today, plan is robotic shyam possible open. She will remain NPO. Her abdominal pain improved. 11/26/24 Post op day 1, patient was seen early today. She reported passing gas and tolerating her clear liquid diet. We will ask surgeon if ok to advance diet and anticipate discharge today if clear from surgery and if advancement in diet tolerated. She remains afebrile, hemodynamically stable. ] REVIEW OF SYSTEMS CONSTITUTIONAL: Denies fevers, chills, or night sweats. No unintentional weight loss reported. NEUROLOGICAL: Denies headache, amaurosis fugax, motor weakness, sensory deficit, vertigo/spinning sensation, gait abnormalities, or tremors. ENT: No hearing loss, otalgia, otorrhea, rhinitis, rhinorrhea, hoarseness, or sore throat. CARDIOVASCULAR: Denies any exertional angina, dyspnea on exertion, orthopnea, paroxysmal nocturnal dyspnea, palpitations, life-threatening arrhythmias, claudication. PULMONARY: Denies any shortness of breath, cough, phlegm/sputum, hemoptysis, pleuritic chest pain. SLEEP: Denies morning headaches, daytime somnolence or napping. Denies difficulty falling asleep, staying asleep, waking from sleep. Denies knowledge of snoring. GASTROINTESTINAL: Denies any type of dysphagia to either liquids or solids. Denies , pyrosis, early satiety, diarrhea, constipation, or changes in stool consistency or caliber. Denies coffee-ground emesis, hematemesis, hematochezia, or melanotic stools. Complains the abdominal pain GENITOURINARY: Denies frequency, urgency, nocturia, hematuria or incontinence (Storage/Irritative symptoms.) Low urinary stream, straining to void, urinary intermittency or hesitancy, splitting of the voiding stream, terminal dribbling. ENDOCRINOLOGIC: Denies polyuria, polydipsia, polyphagia or heat/cold intolerances. HEMATOLOGIC: Denies thrombophilia/previous clots, or coagulopathy/bleeding disorders. ONCOLOGIC: Denies personal history of malignancy. DERMATOLOGIC: Denies rashes or pruritus. PSYCHIATRIC: Denies any suicidal or homicidal ideation. Denies hallucinations. PHYSICAL EXAM GENERAL APPEARANCE: The patient is awake, alert, and oriented, in no acute cardiopulmonary distress. NEUROLOGICAL: Cranial nerves II-XII grossly intact. Motor is 5/5 in bilateral upper and lower extremities proximal to distal. No sensory deficits. HEENT: Face is symmetric. Pupils are equal and reactive. Extraocular movements are intact. NECK: Supple. No JVD. No thyromegaly. No submental, submandibular, pre- /postauricular, occipital or supraclavicular lymphadenopathy. CHEST: Normal chest expansion. No Telemetry. LUNGS: Absence of any rales, rhonchi or any wheezing. CARDIOVASCULAR: Regular. S1 and S2 normal. No appreciable rubs, murmurs or gallops. ABDOMEN: Soft, nontender, and nondistended. There is no rebound, , or rigidity.voluntary guarding : Deferred. No [place]. EXTREMITIES: Non-edematous and not cyanotic. No clubbing. Good capillary refill. SKIN: No skin breakdown. Vital Signs (last 8hr) Date Time Temp Pulse Resp B/P (MAP) Pulse Ox O2 Delivery O2 Flow Rate FiO2 11/26/24 11:40 97.7 68 18 117/69 96 LABS: Laboratory: Test 11/26/24 10:40 11/26/24 03:21 11/25/24 03:30 Range/Units Whole Blood Glucose 119 H 70-110 MG/DL White Blood Count 5.1 4.8-10.8 K/uL Red Blood Count 4.30 4.00-5.50 MIL/uL Hemoglobin 11.9 L 12.0-16.0 g/dL Hematocrit 35.6 L 36-48 % Mean Corpuscular Volume 82.8 79-99 fL Mean Corpuscular Hemoglobin 27.7 27.0-33.0 pg Mean Corpuscular Hemoglobin Concent 33.4 32.0-36.0 g/dL Red Cell Distribution Width 13.8 11.0-15.5 % Platelet Count 145 130-400 K/uL Mean Platelet Volume 11.0 H 7.5-10.5 fL Nucleated Red Blood Cells 0.0 0.0-0.19 % Sodium Level 141 136-145 mmol/L Potassium Level 3.9 3.5-5.1 mmol/L Chloride Level 109 101-111 mmol/L Carbon Dioxide Level 23 21-32 mmol/L Blood Urea Nitrogen 8 7-18 mg/dL Creatinine 0.4 L 0.5-1.0 mg/dL Glomerular Filtration Rate Calc 118 >90 mL/min Random Glucose 118 H 70-105 mg/dL Total Calcium 7.6 L 8.5-10.1 mg/dL Total Bilirubin 0.7 # 0.2-1.0 mg/dL Direct Bilirubin 0.5 #H 0.0-0.3 mg/dL Aspartate Amino Transf (AST/SGOT) 88 H 10-37 U/L Alanine Aminotransferase (ALT/SGPT) 215 #H 12-78 U/L Alkaline Phosphatase 109 50-136 U/L Total Protein 5.8 L 6.0-8.3 g/dL Albumin 2.1 L 3.5-5.0 g/dL Immature Granulocyte % (Auto) 0.3 0-1 % Neutrophils (%) (Auto) 73.3 40.0-77.0 % Lymphocytes (%) (Auto) 19.7 L 21.0-51.0 % Monocytes (%) (Auto) 6.5 3.0-13.0 % Eosinophils (%) (Auto) 0.2 0.0-8.0 % Basophils (%) (Auto) 0.0 0.0-5.0 % Neutrophils # (Auto) 4.4 1.8-7.7 K/uL Lymphocytes # (Auto) 1.2 1.0-4.8 K/uL Monocytes # (Auto) 0.4 0.1-1.0 K/uL Eosinophils # (Auto) 0.01 0.00-0.70 K/uL Basophils # (Auto) 0.00 0.00-0.20 K/uL Absolute Immature Granulocyte (auto 0.02 0-1 K/uL Magnesium Level 1.90 1.80-2.40 mg/dL Current Medications Medications (Trade) Dose Ordered Sig/Arvin Route PRN Reason Start Time Stop Time Status Last Admin Dose Admin Acetaminophen (TYLenol 325MG TAB) 650 mg Q4H PRN PO MILD PAIN (1-3) 11/22/24 12:00 12/22/24 11:59 Acetaminophen (TYLenol 325MG TAB) 650 mg Q6H PRN PO MILD PAIN (1-3) 11/22/24 12:00 11/22/24 12:03 DC Acetaminophen (TYLenol 325MG TAB) 650 mg Q6H PRN PO TEMPERATURE GREATER THAN 101.5 11/22/24 12:00 12/22/24 11:59 Al Hydroxide/Mg Hydroxide (MAALox PLUS 30ML) 30 ml Q6H PRN PO INDIGESTION 11/22/24 12:00 12/22/24 11:59 Ceftriaxone Sodium 2 gm/ Sodium Chloride 100 ml @ 200 mls/hr Q24H IV 11/22/24 12:00 11/22/24 12:04 DC Ceftriaxone Sodium (Rocephin 2gm Inj) 2 gm Q24H IVPB 11/22/24 13:30 12/02/24 13:29 11/26/24 14:16 2 GM Dextrose (D50w) 50 ml AD PRN IV HYPOGLYCEMIA PROTOCOL 11/22/24 12:00 12/22/24 11:59 Diphenhydramine HCl (BENAdryl INJ) 25 mg Q6H PRN IV SEVERE ITCHING/RASH 11/22/24 12:00 12/22/24 11:59 Famotidine (Pepcid 20mg Vial) 20 mg BID IV 11/22/24 21:00 12/22/24 20:59 11/26/24 09:01 20 MG Famotidine (Pepcid 20mg Vial) 20 mg BID PRN IV NAUSEA/VOMITING 11/22/24 12:00 11/22/24 12:03 DC Glucagon (Glucagon 1mg Kit) 1 mg AD PRN IM HYPOGLYCEMIA PROTOCOL 11/22/24 12:00 12/22/24 11:59 Guaifenesin/ Dextromethorphan (RobiTUSSin DM 200/20MG 10ML) 10 ml Q4H PRN PO COUGH 11/22/24 12:00 12/22/24 11:59 Heparin Sodium (Porcine) (HEParin 5,000 UNIT VIAL) 5,000 unit BID SQ 11/22/24 21:00 12/22/24 20:59 11/26/24 09:02 5,000 UNIT Hydralazine HCl (APRESOLine 20MG INJ) 10 mg Q6H PRN IV For:SBP above 160;DBP above 90 11/22/24 12:00 12/22/24 11:59 11/22/24 20:54 10 MG Ibuprofen (moTRIN) 600 mg Q8H PRN PO MODERATE PAIN (4-6) 11/22/24 12:00 11/22/24 12:03 DC Insulin Human Regular (humuLIN R 100 UNIT/ML 3ML) INSULIN SLIDING SCAL... ACHS SQ 11/22/24 16:30 12/22/24 16:29 Ketorolac Tromethamine (toRADol) 15 mg Q8H PRN IV MODERATE PAIN (4-6) 11/22/24 12:00 11/27/24 11:59 11/26/24 05:33 15 MG Lactulose (Constulose 20gm/ 30ml Udcup) 20 gm BID PRN PO CONSTIPATION 11/22/24 12:00 12/22/24 11:59 Magnesium Sulfate 50 ml @ 0 mls/hr PROTOCOL PRN IV other 11/22/24 12:00 12/22/24 11:59 Metronidazole/ Sodium Chloride (flaGYL) 500 mg Q8H IV 11/23/24 11:00 12/03/24 10:59 11/26/24 12:17 500 MG Morphine Sulfate (morPHINE 4MG SYG) 1 mg Q4H PRN IVP SEVERE PAIN (7-10) 11/22/24 12:00 11/29/24 11:59 11/26/24 00:30 1 MG Nitroglycerin (Nitrostat) 0.4 mg PROTOCOL PRN SL CHEST PAIN 11/22/24 12:00 12/22/24 11:59 Ondansetron HCl (zoFRAN 4MG INJ) 4 mg Q6H PRN IV NAUSEA/VOMITING 11/22/24 12:00 12/22/24 11:59 Oxycodone/ Acetaminophen (perCOCET) 1 tab Q6H PRN PO SEVERE PAIN (7-10) 11/22/24 12:00 11/22/24 12:03 DC Potassium Chloride 100 ml @ 100 mls/hr AD PRN IV POTASSIUM PROTOCOL 11/22/24 12:00 12/22/24 11:59 Potassium Chloride (K-Dur/Klor-Con 20meq) 20 meq AD PRN PO POTASSIUM PROTOCOL 11/22/24 12:00 12/22/24 11:59 Potassium Chloride (KCl 10% Elixir 20meq/15ml) 20 meq AD PRN PO POTASSIUM PROTOCOL 11/22/24 12:00 12/22/24 11:59 Sodium Chloride 1,000 ml @ 100 mls/hr Q10H IV 11/22/24 12:00 12/22/24 11:59 11/26/24 05:32 100 MLS/HR Zolpidem Tartrate (AmbIEN) 5 mg HS PRN PO INSOMNIA 11/22/24 12:00 12/22/24 11:59 DIAGNOSTICS / RADIOLOGY: [ ] ASSESSMENT: [ Cholelithiasis POA Possible cholecystitis POA grade 1 steatosis per ultrasound POA Elevated liver enzymes POA Uncontrolled hypertension POA Hypothyroidism POA uncontrolled diabetes mellitus type 2 with hyperglycemia POA History of History of Appendectomy ] PLAN: [ Post op day 1, had robotic cholecystectomy. Continue admission under hospitalist care to medical-surgical floor Chest x-ray negative Ultrasound abdomen showed cholelithiasis grade 1 hepatic steatosis of liver For acute cholecystitis s/p s robotic cholecystectomy Ok to advance diet if ok with surgeon, she is tolerating clear liquid diet Hyper hypoglycemia protocol Hypomagnesemia Protocol Hypokalemia protocol Culture showed mixed michael Continue with supportive care Patient can probable be discharge today if cleared from surgeon Case was seen and examined with Dr. Dover, above plan was formulated ] ATTESTATION BY PHYSICIAN I have seen and examined the patient. I reviewed the documentation, medical decision making, and treatment plan as noted by the mid-level provider above. I agree with the findings and plan of care. Monika Johns MD, [facility] Nov 26, 2024 17:10
--- NOTE | 2024-11-27 08:56 | DS ---
Discharge Summary Hospital Course Summary: Reason for Admission: Acute right upper quadrant (RUQ) abdominal pain radiating to the back, concerning for biliary pathology. History of Present Illness: The patient is a 4-year-old female with a past medical history significant for hyperlipidemia, (maternal), appendectomy, and thyroid disease. She presented to the emergency department with severe RUQ abdominal pain radiating to her back, which began the previous evening after consuming a plate of lemon pepper wings and Coca-Cola. This was the first time in a long period that she had greasy food, and she had not experienced similar symptoms previously. The pain was described as unbearable, prompting her visit to the ER. Pertinent Findings: Vital Signs on Admission: Temperature: 98F Pulse: 55 bpm Respiratory Rate: [Not specified] BP: 148/60 mmHg O2 Saturation: 98% on room air Laboratory Results: FVC: 4.3 Hemoglobin: 15.4 Hematocrit: 40.2 Platelets: 188 WBC: Within normal limits Sodium: 141 Potassium: 3.0 CO2: 26 BUN: 10 Creatinine: 0.6 GFR: 107 Lactic Acid: 1.0 Random Glucose: 150 AST: 40 ALT: 82 Triglycerides: 81 Lipase: 40 Imaging: Abdominal Ultrasound: Cholelithiasis, grade 1 steatosis Chest X-ray: Pending at time of admission MRCP: Pending at time of admission HIDA Scan: Positive for acute cholecystitis Hospital Course: The patient was admitted under hospitalist care for further evaluation and management. GI and general surgery were consulted. General surgery recommended a HIDA scan, which confirmed acute cholecystitis. On 11/25/2024, the patient underwent a robotic-assisted laparoscopic cholecystectomy. The procedure was well tolerated without complications. Postoperatively, the patient was hemodynamically stable, passed flatus on postoperative day one, and tolerated advancement from clear liquids to a soft diet without difficulty. She remained stable throughout her hospital stay. Discharge Condition: The patient is stable, tolerating diet, ambulating, and afebrile. No acute distress noted at discharge. Core Cutter(s): Discharge Condition: The patient is stable, tolerating diet, ambulating, and afebrile. No acute distress noted at discharge. Follow-Up Recommendations: Follow up with primary care provider in 2-3 days. Follow up with Dr. All Marte (General Surgery) as scheduled. Monitor for any signs of infection, persistent pain, or other concerning symptoms. Instructions Given: Wound care instructions reviewed with parent/guardian. Return to ED for fever, persistent vomiting, severe pain, or any other concerning symptoms. Procedure(s): 11/26/24 - laparoscopic cholecystectomy by Dr. All Marte Assessment/Plan: Admitting Diagnosis [Cholelithiasis POA Possible cholecystitis POA grade 1 steatosis per ultrasound POA Elevated liver enzymes POA Uncontrolled hypertension POA Hypothyroidism POA uncontrolled diabetes mellitus type 2 with hyperglycemia POA History of History of Appendectomy ] Final Discharge Diagnosis: Acute cholecystitis, status post robotic-assisted laparoscopic cholecystectomy Cholelithiasis Grade 1 hepatic steatosis Hyperlipidemia History of thyroid disease History of appendectomy Home Medications: Reported Medications Atorvastatin Calcium (LIPITOR) 40 Mg Tablet, 1 TAB PO HS for 30 Days, #30 TAB 0 Refills 11/22/24 Levothyroxine Sodium (Levothyroxine) 75 Mcg Capsule, 70 MCG PO DAILY, CAP 08/29/21 Discontinued Reported Medications Losartan Potassium (Losartan Potassium) 50 Mg Tablet, 50 MG PO HS, TAB 08/29/21 Time spent arranging discharge: 31-60 minutes ATTESTATION BY PHYSICIAN I have seen and examined the patient. I reviewed the documentation, medical decision making, and treatment plan as noted by the mid-level provider above. I agree with the findings and plan of care. Monika Johns MD, [facility] Nov 27, 2024 08:56
== END 2024-11-26 19:38 | disposition home or self-care (01) | DRG 419 ==
LOC: EDH 08:46 → EDHIP 11:53 → 1MS 13:59
PROVIDERS: ADMIT Internal Medicine; ATTEND Internal Medicine
PROC: 8E0W4CZ Robotic Assisted Procedure of Trunk Region, Percutaneous Endoscopic Approach (ICD-10-PCS; 2024-11-25)
PROC: 0FT44ZZ Resection of Gallbladder, Percutaneous Endoscopic Approach (ICD-10-PCS; principal; 2024-11-25 14:56)
DX: K80.00 Calculus of gallbladder with acute cholecystitis without obstruction (principal); E03.9 Hypothyroidism, unspecified; E11.65 Type 2 diabetes mellitus with hyperglycemia; I10 Essential (primary) hypertension; K76.0 Fatty (change of) liver, not elsewhere classified; E78.5 Hyperlipidemia, unspecified; K66.0 Peritoneal adhesions (postprocedural) (postinfection); Z98.891 History of uterine scar from previous surgery; Z79.899 Other long term (current) drug therapy
CPT/HCPCS: 36415; 71045; 74181; 76705; 78226; 78227; 80048; 80053; 80076; 81001; 82948; 83036; 83605; 83690; 83735; 84478; 85025; 85027; 87086; 88304; 96361; 96374; 99285; A9537; J0360; J0696; J1644; J1885; J2250; J2270; J2405; J2704; J2710; J2795; J3010; J3490; J7030; A4213; A4215; A4216; A4221; A4222; A4223; A4600; A4663; C1769; J1308